=== PATIENT | male | born 1955 | race Caucasian/White ===

== ENCOUNTER → 2017-04-02 | Emergency (ER) | payer OTHER ==
[~2017-04-02] VITALS: Ht 180.3 cm; Wt 123.4 kg
[~2017-04-02] MED LIST: ASPIRIN EC81 MG PO; CARVEDILOL25 MG PO; COUMADIN5 MG PO; DICLOFENAC SODI75 MG PO; GUAIATUSSIN AC10 ML PO; KLOR-CON M2020 MEQ PO; LASIX20 MG PO; LOSARTAN POTASS25 MG PO; NORCO 5-325 TA1 EACH PO; PREDNISONE20 MG PO; SULFAMETHOXAZO1 EAC1 PO; TRIAMTERENE-HC1 EAC1 PO; TRIAMTERENE-HC1 EAC2 PO; WARFARIN SODIU2.5 MG PO; ZYLOPRIM300 MG PO
--- OUTSIDE RECORDS SUMMARY | ~2017-04-02 | XMS ---
Demographics + + + | Address | [address] | | | [address] | | | [place] [address] | + + + | Preferred Language | Unknown | + + + | Marital Status | Unknown | + + + | Yarsanism Affiliation | Unknown | + + + | Race | Unknown | + + + | Ethnic Group | Unknown | + + + Author + + + | Author | [facility] | + + + | Organization | [facility] | + + + | Address | [address] | | | [place] [address] | + + + | Phone | | + + + Care Team Providers + + + + | Care Hardware Trainer Name | Role | Phone | + + + + Unavailable | Unavailable | + + + + PROBLEMS +---------+ + + +--------+ + + | Type | Condition | ICD9-CM | [id number] | Onset | Condition | SNOMED | | | | Code | Code | Dates | Status | Code | +---------+ + + +--------+ + + | Problem | Adrenal | D35.01 | | | Active | [id number] | | | cortical | | | | | | | | adenoma of | | | | | | | | right | | | | | | | | adrenal | | | | | | | | gland | | | | | | +---------+ + + +--------+ + + | 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 | | | Active | 2949186 | | | concentric | | | | | | | | left | | | | | | | | ventricula | | | | | | | | r | | | | | | | | hypertroph | | | | | | | | y | | | | | | +---------+ + + +--------+ + + | Problem | Epidermal | L72.0 | | | Active | [id number] | | | inclusion | | | | | | | | cyst | | | | | | +---------+ + + +--------+ + + | Problem | Elevated | E79.0 | | | Active | 499649616 | | | uric acid | | | | | | | | in blood | | | | | | +---------+ + + +--------+ + + | Problem | Atrial | | I48.91 | | Active | 02667518 | | | fibrillati | | | | | | | | on | | | | | | +---------+ + + +--------+ + + | Problem | Mitral | I34.0 | | | Active | 81617106 | | | regurgitat | | | | | | | | ion | | | | | | +---------+ + + +--------+ + + | Problem | Encounter | | Z13.89 | | Active | 875621962 | | | for | | | | | | | | screening | | | | | | | | for other | | | | | | | | disorder | | | | | | +---------+ + + +--------+ + + | Problem | Morbid | | E66.01 | | Active | 962882897 | | | obesity | | | | | | +---------+ + + +--------+ + + | Problem | Lesion of | E27.9 | | | Active | 96753098 | | | adrenal | | | | | | | | gland | | | | | | +---------+ + + +--------+ + + | Problem | Obesity | | E66.9 | | Active | 696536172 | +---------+ + + +--------+ + + | Problem | ASCVD | I25.10 | | | Active | 50342864 | | | (arteriosc | | | | | | | | lerotic | | | | | | | | cardiovasc | | | | | | | | ular | | | | | | | | disease) | | | | | | +---------+ + + +--------+ + + | Problem | Strep | J02.0 | | | Active | 93633781 | | | pharyngiti | | | | | | | | s | | | | | | +---------+ + + +--------+ + + | Problem | Elevated | R97.20 | | | Active | 170782673 | | | PSA | | | | | | +---------+ + + +--------+ + + | Problem | Essential | | I10 | | Active | 66125670 | | | (primary) | | | | | | | | hypertensi | | | | | | | | on | | | | | | +---------+ + + +--------+ + + | Problem | Allergic | 493.00 | | | Active | 96457716 | | | asthma w/o | | | | | | | | mention | | | | | | | | of status | | | | | | | | asthmaticu | | | | | | | | s or acute | | | | | | | | | | | | | | | | exacerbati | | | | | | | | on | | | | | | +---------+ + + +--------+ + + | Problem | Hypertensi | 401.9 | | | Active | 67635349 | | | on NOS | | | | | | +---------+ + + +--------+ + + | Problem | Pain in | | M25.571 | | Active | 027269080 | | | right | | | | | | | | ankle and | | | | | | | | joints of | | | | | | | | right foot | | | | | | +---------+ + + +--------+ + + | Problem | Pain in | | M25.572 | | Active | 565046253 | | | left ankle | | | | | | | | and | | | | | | | | joints of | | | | | | | | left foot | | | | | | +---------+ + + +--------+ + + | Problem | Gout | | M10.9 | | Active | 06850771 | +---------+ + + +--------+ + + | Problem | Chronic | | Z79.01 | | Active | 146829416 | | | anticoagul | | | | | | | | ation | | | | | | +---------+ + + +--------+ + + | Problem | CHF | | I50.9 | | Active | 75117721 | | | (congestiv | | | | | | | | e heart | | | | | | | | failure) | | | | | | +---------+ + + +--------+ + + | Problem | Hypokalemi | | E87.6 | | Active | 08176808 | | | a | | | | | | +---------+ + + +--------+ + + | Problem | Mitral | | I05.0 | | Active | 81277945 | | | stenosis | | | | | | +---------+ + + +--------+ + + | Problem | Anasarca | N04.9 | | | Active | 71104399 | | | associated | | | | | | | | with | | | | | | | | disorder | | | | | | | | of kidney | | | | | | +---------+ + + +--------+ + + | Problem | Pneumonia | J18.9 | | | Active | 823692892 | +---------+ + + +--------+ + + | Problem | Hypertensi | I12.9 | | | Active | 18052170 | | | ve renal | | | | | | | | disease | | | | | | +---------+ + + +--------+ + + | Problem | CKD | | N18.3 | | Active | 345500912 | | | (chronic | | | | | | | | kidney | | | | | | | | disease) | | | | | | | | stage 3, | | | | | | | | GFR 30-59 | | | | | | | | ml/min | | | | | | +---------+ + + +--------+ + + | Problem | Swollen | M79.89 | | | Active | 247278309 | | | feet | | | | | | +---------+ + + +--------+ + + ALLERGIES Unknown Allergies SOCIAL HISTORY No smoking Hx information available PLAN OF CARE VITAL SIGNS MEDICATIONS + + + + + + + +--------+ | Medicati | Instruct | Dosage | Frequenc | Start | End Date | Duration | Status | | on | ions | | y | Date | | | | + + + + + + + +--------+ | Albutero | Inhalati | 2 puffs | 4h | 22 Jul, | | 90 days | Active | | l | on every | as | | 2015 | | | | | Sulfate | 4 hrs | needed | | | | | | | HFA 108 | | | | | | | | | (90 | | | | | | | | | Base) | | | | | | | | | MCG/ACT | | | | | | | | + + + + + + + +--------+ | Carvedil | Orally | 1 tablet | 12h | | | 90 days | Active | | ol 25 MG | Twice a | with | | | | | | | | day | food | | | | | | + + + + + + + +--------+ | Warfarin | Orally | 1 tablet | | 23 September, | | 90 days | Active | | Sodium | Once a | | | 2016 | | | | | 5 MG | day, T,F | | | | | | | | | 7.5mg | | | | | | | + + + + + + + +--------+ | Furosemi | orally | TAKE ONE | 24h | | | 90 days | Active | | de 20MG | once a | TABLET | | | | | | | | day | BY MOUTH | | | | | | | | | ONCE | | | | | | | | | DAILY | | | | | | + + + + + + + +--------+ | Aspir-81 | Orally | 1 tablet | 24h | | | | Active | | 81 MG | Once a | | | | | | | | | day | | | | | | | + + + + + + + +--------+ | Diclofen | | | | | | | Active | | ac | | | | | | | | + + + + + + + +--------+ | Klor-Con | | TAKE ONE | | | | 30 | Active | | M20 | | TABLET | | | | | | | 20MEQ | | BY MOUTH | | | | | | | | | TWICE | | | | | | | | | DAILY | | | | | | + + + + + + + +--------+ | Triamter | orally | TAKE ONE | 24h | | | 90 days | Active | | negin-HCTZ | once a | TABLET | | | | | | | 75-50MG | day | BY MOUTH | | | | | | | | | IN THE | | | | | | | | | MORNING | | | | | | + + + + + + + +--------+ | Losartan | Orally | 1 tablet | 24h | | | 90 days | Active | | | Once a | | | | | | | | Potassiu | day | | | | | | | | m 25MG | | | | | | | | + + + + + + + +--------+ RESULTS No Results PROCEDURES No Known procedures IMMUNIZATIONS No Known Immunizations"
--- OUTSIDE RECORDS SUMMARY | ~2017-04-02 | XMS ---
Demographics + + + | Address | [address] | | | [address] | | | [place] [address] | + + + | Preferred Language | Unknown | + + + | Marital Status | Unknown | + + + | Evangelical Affiliation | Unknown | + + + | Race | Unknown | + + + | Ethnic Group | Unknown | + + + Author + + + | Author | [facility] | + + + | Organization | [facility] | + + + | Address | [address] | | | [place] [address] | + + + | Phone | | + + + Care Team Providers + + + + | Care Volunteer Manager Name | Role | Phone | + + + + Unavailable | Unavailable | + + + + PROBLEMS +---------+ + + +--------+ + + | Type | Condition | ICD9-CM | [id number] | Onset | Condition | SNOMED | | | | Code | Code | Dates | Status | Code | +---------+ + + +--------+ + + | Problem | Swollen | M79.89 | | | Active | [id number] | | | feet | | | | | | +---------+ + + +--------+ + + | Problem | Hypertensi | I12.9 | | | Active | 51464116 | | | ve renal | | | | | | | | disease | | | | | | +---------+ + + +--------+ + + | Problem | Pneumonia | J18.9 | | | Active | 612597444 | +---------+ + + +--------+ + + | Problem | Strep | J02.0 | | | Active | 24914201 | | | pharyngiti | | | | | | | | s | | | | | | +---------+ + + +--------+ + + | 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 | | | Active | 0849057 | | | concentric | | | [...] | | E66.9 | | Active | 533648578 | +---------+ + + +--------+ + + | Problem | Adrenal | D35.01 | | | Active | 54253897 | | | cortical | | | [...] | | Z13.89 | | Active | 682833256 | | | for | | | | | | | | screening | | | | | | | | for other | | | | | | | | disorder | | | | | | +---------+ + + +--------+ + + | Problem | Atrial | | I48.91 | | Active | 76752404 | | | fibrillati | | | | | | | | on | | | | | | +---------+ + + +--------+ + + | Problem | ASCVD | I25.10 | | | Active | 29121578 | | | (arteriosc | | | [...] | E27.9 | | | Active | 07389833 | | | adrenal | | | | | | | | gland | | | | | | +---------+ + + +--------+ + + | Problem | Hypertensi | 401.9 | | | Active | 52187315 | | | on NOS | | | | | | +---------+ + + +--------+ + + | Problem | Allergic | 493.00 | | | Active | 39454562 | | | asthma w/o | | [...] | L72.0 | | | Active | 311428431 | | | inclusion | | | | | | | | cyst | | | | | | +---------+ + + +--------+ + + | Problem | Mitral | I34.0 | | | Active | 77963349 | | | regurgitat | | | | | | | | ion | | | | | | +---------+ + + +--------+ + + | Problem | Anasarca | N04.9 | | | Active | 95815731 | | | associated | | | | | | | | with | | | | | | | | disorder | | | | | | | | of kidney | | | | | | +---------+ + + +--------+ + + | Problem | CHF | | I50.9 | | Active | 78295520 | | | (congestiv | | | | | | | | e heart | | | | | | | | failure) | | | | | | +---------+ + + +--------+ + + | Problem | Essential | | I10 | | Active | 46787243 | | | (primary) | | | | | | | | hypertensi | | | | | | | | on | | | | | | +---------+ + + +--------+ + + | Problem | Hypokalemi | | E87.6 | | Active | 79882980 | | | a | | | | | | +---------+ + + +--------+ + + | Problem | Mitral | | I05.0 | | Active | 54107255 | | | stenosis | | | | | | +---------+ + + +--------+ + + | Problem | CKD | | N18.3 | | Active | 791014421 | | | (chronic | | | [...] +---------+ + + +--------+ + + ALLERGIES + + + + +--------+ | Substance | Reaction | Event Type | Date | Status | + + + + +--------+ | Lisinipril | cough | Drug Allergy | Oct, | Active | + + + + +--------+ | Pulmicort | dizzy | Drug Allergy | Oct, | Active | + + + + +--------+ SOCIAL HISTORY No smoking Hx information available PLAN OF CARE + +---------+ | Activity | Details | + +---------+ +---+ | | +---+ + + + | Follow Up | as scheduled with PCP Reason:null | + + + VITAL SIGNS + + + + | Height | 70.5 in | 2016-10-11 | + + + + | Weight | 299.1 lbs | 2016-10-11 | + + + + | BMI | 42.31 kg/m2 | 2016-10-11 | + + + + | Temperature | 97.9 degrees Fahrenheit | 2016-10-11 | + + + + | Heart Rate | 67 /min | 2016-10-11 | + + + + | Blood pressure systolic | 137 mm Hg | 2016-10-11 | + + + + | Blood pressure diastolic | 85 mm Hg | 2016-10-11 | + + + + MEDICATIONS + + + + + + + +--------+ | Medicati | Instruct | Dosage | Frequenc | Start | End Date | Duration | Status | | on | ions | | y | Date | | | | + + + + + + + +--------+ | Acetamin | Orally | 10 ml as | | Oct, | 19 Oct, | 10 | Active | | ophen-Co | once a | needed | | 2017 | 2017 | day(s) | | | deine | day at | | | | | | | | 120-12 | bedtime | | | | | | | | MG/5ML | | | | | | | [...] Inhalati | 2 puffs | 4h | Jul, | | 90 days | Active [...] + + + + + +--------+ | Penicill | orally | 1 tablet | 12h | Oct, | Oct, | 10 days | Active | | in V | Twice a | | | 2016 | 2016 | | | | Potassiu | day | | | | | | | | m 500 MG | | | | | | | [...] | Orally | 1 tablet | | 24 September, | | 90 days | Active | | Sodium | Once a | | | 2015 | | | | | 5 MG [...] + + + + + +--------+ RESULTS + +--------+------+ + | Name | Result | Date | Reference Range | + +--------+------+ + | Strep Gp A Rapid | | | | | (IH) | | | | + +--------+------+ + PROCEDURES + + + + + | Procedure | Date Ordered | Related Diagnosis | Body Site | + + + + + | STREP A ASSAY | October 11, 2016 | | | | W/OPTIC | | | | + + + + + | Est Level III | October 11, 2016 | | | | Intermediate | | | | + + + + + IMMUNIZATIONS No Known Immunizations"
--- OUTSIDE RECORDS SUMMARY | ~2017-04-02 | XMS ---
Demographics + + + | Address | [address] | | | [address] | | | [place] [address] | + + + | Preferred Language | Unknown | + + + | Marital Status | Unknown | + + + | Oriental Orthodox Affiliation | Unknown | + + + | Race | Unknown | + + + | Ethnic Group | Unknown | + + + Author + + + | Author | [facility] | + + + | Organization | [facility] | + + + | Address | [address] | | | [place] [address] | + + + | Phone | | + + + Care Team Providers + + + + | Care Enterprise Sales Person Name | Role | Phone | + + + + Unavailable | Unavailable | + + + + PROBLEMS + + + + + + + + | Type | Condition | ICD9-CM | [id number] | Onset | Condition | SNOMED | | | | Code | Code | Dates | Status | Code | + + + + + + + + | Problem | CHF | | I50.9 | | Active | 30225402 | | | (congestiv | | | | | | | | e heart | | | | | | | | failure) | | | | | | + + + + + + + + | Problem | CKD | | N18.3 | | Active | 580595111 | | | (chronic | | | | | | | | kidney | | | | | | | | disease) | | | | | | | | stage 3, | | | | | | | | GFR 30-59 | | | | | | | | ml/min | | | | | | + + + + + + + + | Problem | Hypokalemi | | E87.6 | | Active | 67146722 | | | a | | | | | | + + + + + + + + | Problem | Lesion of | E27.9 | | | Active | 45034114 | | | adrenal | | | | | | | | gland | | | | | | + + + + + + + + | Assessment | Morbid | | E66.01 | Aug, | Active | 967111351 | | | obesity | | | 2016 | | | + + + + + + + + | Problem | Encounter | | Z13.89 | | Active | 912246594 | | | for | | | | | | | | screening | | | | | | | | for other | | | | | | | | disorder | | | | | | + + + + + + + + | Assessment | Seborrheic | L82.1 | | Aug, | Active | 57091092 | | | keratosis | | | 2016 | | | + + + + + + + + | Problem | Pneumonia | J18.9 | | | Active | 362243789 | + + + + + + + + | Problem | Swollen | M79.89 | | | Active | 185604561 | | | feet | | | | | | + + + + + + + + | Problem | Atrial | | I48.91 | | Active | 71782071 | | | fibrillati | | | | | | | | on | | | | | | + + + + + + + + | Problem | Hypertensi | I12.9 | | | Active | 00734910 | | | ve renal | | | | | | | | disease | | | | | | + + + + + + + + | 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 | | | Active | 9973542 | | | concentric | | | | | | | | left | | | | | | | | ventricula | | | | | | | | r | | | | | | | | hypertroph | | | | | | | | y | | | | | | + + + + + + + + | Problem | Epidermal | L72.0 | | | Active | 648302451 | | | inclusion | | | | | | | | cyst | | | | | | + + + + + + + + | Assessment | Hypertensi | I12.9 | | 17 Apr, | Active | 08219733 | | | ve renal | | | 2016 | | | | | disease | | | | | | + + + + + + + + | Problem | Adrenal | D35.01 | | | Active | 02741388 | | | cortical | | | | | | | | adenoma of | | | | | | | | right | | | | | | | | adrenal | | | | | | | | gland | | | | | | + + + + + + + + | Problem | Allergic | 493.00 | | | Active | 14204674 | | | asthma w/o | | [...] on | | | | | | + + + + + + + + | Problem | Essential | | I10 | | Active | 93087282 | | | (primary) | | | | | | | | hypertensi | | | | | | | | on | | | | | | + + + + + + + + | Problem | Mitral | I34.0 | | | Active | 69941125 | | | regurgitat | | | | | | | | ion | | | | | | + + + + + + + + | Problem | Mitral | | I05.0 | | Active | 33533933 | | | stenosis | | | | | | + + + + + + + + | Problem | Hypertensi | 401.9 | | | Active | 05910735 | | | on NOS | | | | | | + + + + + + + + | Problem | Anasarca | N04.9 | | | Active | 51354998 | | | associated | | | | | | | | with | | | | | | | | disorder | | | | | | | | of kidney | | | | | | + + + + + + + + ALLERGIES + + + + +--------+ | Substance | Reaction | Event Type | Date | Status | + + + + +--------+ | Lisinipril | cough | Drug Allergy | 17 Aug, 2017 | Active | + + + + +--------+ | Pulmicort | dizzy | Drug Allergy | Aug, | Active | + + + + +--------+ SOCIAL HISTORY No smoking Hx information available PLAN OF CARE VITAL SIGNS + + + + | Height | 70.5 in | 2016-08-19 | + + + + | Weight | 293 lbs | 2016-08-19 | + + + + | BMI | 41.44 kg/m2 | 2016-08-19 | + + + + | Temperature | 97.3 degrees Fahrenheit | 2016-08-19 | + + + + | Heart Rate | 68 /min | 2016-08-19 | + + + + | Blood pressure systolic | 127 mm Hg | 2016-08-19 | + + + + | Blood pressure diastolic | 74 mm Hg | 2016-08-19 | + + + + MEDICATIONS + [...] | on every | as | | 2016 | | | | | Sulfate | [...] + + + + + +--------+ | KCL 20 | Orally | 1 tablet | 12h | | 11 Antonio, | 90 days | Active | | mEq | Twice a | | | | 2018 | | | | | day | | | | | | | + + + + + + + +--------+ | Warfarin | Orally | 1 tablet | | 23 May, | | 90 days | Active | [...] + + + + +--------+ RESULTS + +--------+ + + | Name | Result | Date | Reference Range | + +--------+ + + | TSH | | 2016-08-19 | | + +--------+ + + | TSH | | | | + +--------+ + + | Lipid Panel | | 2016-08-19 | | + +--------+ + + | Cholesterol, Total | | | | + +--------+ + + | Triglycerides | | | | + +--------+ + + | HDL Cholesterol | | | | + +--------+ + + | VLDL Cholesterol | | | | | [place] | | | | + +--------+ + + | LDL Cholesterol | | | | | Calc | | | | + +--------+ + + | PSA Total (Reflex | | 2016-08-19 | | | To Free) | | | | + +--------+ + + | Prostate-Specific | | | | | Ag, Serum | | | | + +--------+ + + | . | | | | + +--------+ + + PROCEDURES + + + + + | Procedure | Date Ordered | Related Diagnosis | Body Site | + + + + + | Est Level IV | August 19, 2016 | | | | Extended | | | | + + + + + | [facility] MED/CURRENT | August 19, 2016 | | | | MED MERGE | | | | + + + + + IMMUNIZATIONS No Known Immunizations"
--- OUTSIDE RECORDS SUMMARY | ~2017-04-02 | XMS ---
Demographics + + + | Address | [address] | | | [address] | | | [place] [address] | + + + | Preferred Language | Unknown | + + + | Marital Status | Unknown | + + + | Confucianist Affiliation | Unknown | + + + | Race | Unknown | + + + | Ethnic Group | Unknown | + + + Author + + + | Author | [facility] | + + + | Organization | [facility] | + + + | Address | [address] | | | [place] [address] | + + + | Phone | | + + + Care Team Providers + + + + | Care Operations Welder Name | Role | Phone | + + + + Unavailable | Unavailable | + + + + PROBLEMS +---------+ + + +--------+ + + | Type | Condition | ICD9-CM | [id number] | Onset | Condition | SNOMED | | | | Code | Code | Dates | Status | Code | +---------+ + + +--------+ + + | Problem | CKD | | N18.3 | | Active | [id number] | | | (chronic | | | [...] | J18.9 | | | Active | 185135833 | +---------+ + + +--------+ + + | Problem | Swollen | M79.89 | | | Active | 035729905 | | | feet | | | | | | +---------+ + + +--------+ + + | Problem | Obesity | | E66.9 | | Active | 923110867 | +---------+ + + +--------+ + + | Problem | Adrenal | D35.01 | | | Active | 26944280 | | | cortical | | | [...] | I25.10 | | | Active | 57850521 | | | (arteriosc | | | | | | | | lerotic | | | | | | | | cardiovasc | | | | | | | | ular | | | | | | | | disease) | | | | | | +---------+ + + +--------+ + + | Problem | Atrial | | I48.91 | | Active | 88027643 | | | fibrillati | | | | | | | | on | | | | | | +---------+ + + +--------+ + + | Problem | Hypertensi | I12.9 | | | Active | 44432237 | | | ve renal | | | | | | | | disease | | | | | | +---------+ + + +--------+ + + | Problem | Lesion of | E27.9 | | | Active | 98156346 | | | adrenal | | | | | | | | gland | | | | | | +---------+ + + +--------+ + + | Problem | Encounter | | Z13.89 | | Active | 788327170 | | | for | | | | | | | | screening | | | | | | | | for other | | | | | | | | disorder | | | | | | +---------+ + + +--------+ + + | Problem | Mitral | I34.0 | | | Active | 97035380 | | | regurgitat | | | | | | | | ion | | | | | | +---------+ + + +--------+ + + | Problem | Hypertensi | 401.9 | | | Active | 13458161 | | | on NOS | | | | | | +---------+ + + +--------+ + + | 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 | | | Active | 1225986 | | | concentric | | | [...] | L72.0 | | | Active | 742070108 | | | inclusion | | | | | | | | cyst | | | | | | +---------+ + + +--------+ + + | Problem | Mitral | | I05.0 | | Active | 67021099 | | | stenosis | | | | | | +---------+ + + +--------+ + + | Problem | Anasarca | N04.9 | | | Active | 06944172 | | | associated | | | | | | | | with | | | | | | | | disorder | | | | | | | | of kidney | | | | | | +---------+ + + +--------+ + + | Problem | Allergic | 493.00 | | | Active | 77566234 | | | asthma w/o | | [...] | | I50.9 | | Active | 21222186 | | | (congestiv | | | | | | | | e heart | | | | | | | | failure) | | | | | | +---------+ + + +--------+ + + | Problem | Essential | | I10 | | Active | 04964328 | | | (primary) | | | | | | | | hypertensi | | | | | | | | on | | | | | | +---------+ + + +--------+ + + | Problem | Hypokalemi | | E87.6 | | Active | 38124907 | | | a | | | | | | +---------+ + + +--------+ + + ALLERGIES + + + + +--------+ | Substance | Reaction | Event Type | Date | Status | + + + + +--------+ | Lisinipril | cough | Drug Allergy | September, | Active | + + + + +--------+ | Pulmicort | dizzy | Drug Allergy | September, | Active | + + + + +--------+ SOCIAL HISTORY No smoking Hx information available PLAN OF CARE + +---------+ | Activity | Details | + +---------+ +---+ | | +---+ + + + | Follow Up | 3 Months Reason:null | + + + VITAL SIGNS + + + + | Height | 70.5 in | 2016-10-01 | + + + + | Weight | 300 lbs | 2016-10-01 | + + + + | BMI | 42.43 kg/m2 | 2016-10-01 | + + + + | Temperature | 97.6 degrees Fahrenheit | 2016-10-01 | + + + + | Heart Rate | 60 /min | 2016-10-01 | + + + + | Blood pressure systolic | 114 mm Hg | 2016-10-01 | + + + + | Blood pressure diastolic | 59 mm Hg | 2016-10-01 | + + + + MEDICATIONS + [...] + + +--------+ RESULTS No Results PROCEDURES + + + + + | Procedure | Date Ordered | Related Diagnosis | Body Site | + + + + + | Est Level III | October 01, 2016 | | | | Intermediate | | | | + + + + + | [facility] MED/CURRENT | October 01, 2016 | | | | MED MERGE | | | | + + + + + IMMUNIZATIONS No Known Immunizations"
== END ==
LOC: ED 20:35
DX: R04.0 Epistaxis (principal); I10 Essential (primary) hypertension; Z90.49 Acquired absence of other specified parts of digestive tract; Z79.899 Other long term (current) drug therapy; Z79.01 Long term (current) use of anticoagulants; Z79.82 Long term (current) use of aspirin
CPT/HCPCS: 85025; 85610; 99283

== ENCOUNTER 2018-07-27 12:07 | Day surgery (SDC) | payer OTHER ==
[~2018-07-27 12:07] MED LIST changes: +CELEBREX200 MG PO; -LASIX20 MG PO; +LASIX40 MG PO
--- NOTE | 2018-07-27 13:52 | NUR ---
07/27/18 1352 [address] 1330 PT TO PACU, ALERT AND ORIENTED. LR INFUSING TO RIGHT HAND. PT ON LEFT SIDE, ENCOURAGED TO PASS GAS. ABD SOFT, DENIES PAIN OR NAUSEA.
--- NOTE | 2018-07-27 20:11 | OR ---
[facility] [address], [place] [address] Signed DATE OF OPERATION: 07/27/2018 SURGEON: Emerson Plunkett MD PREOPERATIVE DIAGNOSES: 1. Episodic dark stool and constipation. 2. Chronic anticoagulation with Coumadin for atrial fibrillation. POSTOPERATIVE DIAGNOSES: 1. Extensive sigmoid and left-sided diverticulosis. 2. Small polyp of rectum (excised). 3. Internal hemorrhoids and hypertrophied anal papillae. PROCEDURE: Total colonoscopy to cecum with cold morcellation polypectomy x1. ANESTHESIA: Intravenous sedation; fentanyl 100 mcg, Versed 5 mg. INDICATION: This morbidly obese 63-year-old white man, who is a patient Dr. Hadley and is on Coumadin for chronic anticoagulation for atrial fibrillation. He has been off Coumadin for 4 days. He has had complaints of dark stool as well as constipation. He last underwent colonoscopy at the [facility] well before 2008, which was said to be normal. He was admitted at this time to undergo colonoscopy to better characterize his problem, understand the risks of bleeding, infection, and perforation. FINDINGS: The prep was reasonably good. Complete colonoscopy was undertaken to the cecum without question. There were numerous diverticula of the sigmoid and left colon. There was a small sessile polyp of the rectum, which was excised. Retroflexed view confirmed hypertrophied anal papillae and some internal hemorrhoidal change. DESCRIPTION OF PROCEDURE: The patient was brought to the endoscopy suite and placed in lateral decubitus position given intravenous sedation to the point of slurred speech and nystagmus with full cardiopulmonary monitoring. Digital rectal examination was normal. An Olympus video colonoscope was passed in the rectum and manipulated throughout the colon, ultimately intubating the cecum itself. Visualization was reasonably good. Electronically Signed By: EMERSON PLUNKETT MD 07/27/182010 PATIENT NAME: AYAD ANDERSON OPERATIVE REPORT DATE OF : 55 REPORT #: [id number] PHYSICIAN: EMERSON PLUNKETT MD PCP: ARMIN HADLEY MD REPORT IS CONFIDENTIAL AND NOT TO BE RELEASED WITHOUT AUTHORIZATION [facility] [address], [place] [address] Signed Irrigation was undertaken as necessary. The scope was carefully withdrawn and examination undertaken showed no sign of abnormality other than numerous diverticula of the sigmoid and left colon as had been seen previously. Within the rectum at about 10 cm was a small sessile polyp. Narrow band imaging was used to confirm this to be likely an adenoma. This was excised with cold morcellation technique. Retroflexed view was undertaken showing some internal hemorrhoidal change and hypertrophied anal papillae. The scope was straightened, withdrawn, and removed. The patient was taken to recovery room in good condition. CONCLUDING DIAGNOSIS: 1. Extensive diverticulosis. 2. Minimal internal hemorrhoidal change with hypertrophied anal papillae and small rectal polyp (excised). PLAN: He is okay to re-start his Coumadin. There will be a few days to "ramp up" to a therapeutic level. I would recommend repeat colonoscopy in 5 years sooner if clinically indicated. He should maintain a high-fiber diet. He will return to the ongoing care of Dr. Hadley. Emerson Plunkett MD JM/MODL /[id number] cc: Armin Hadley MD Copies: ARMIN HADLEY MD ~ Electronically Signed By: EMERSON PLUNKETT MD 07/27/182010 PATIENT NAME: AYAD ANDERSON OPERATIVE REPORT DATE OF : 55 REPORT #: [id number] PHYSICIAN: EMERSON PLUNKETT MD PCP: ARMIN HADLEY MD REPORT IS CONFIDENTIAL AND NOT TO BE RELEASED WITHOUT AUTHORIZATION
== END 2018-07-27 14:18 | disposition home or self-care (01) ==
LOC: DS 12:07 → OPS 12:07 → DS 13:00 → OPS 13:00
PROVIDERS: Surgery
PROC: 0DBP8ZX Excision of Rectum, Via Natural or Artificial Opening Endoscopic, Diagnostic (ICD-10-PCS; principal; 2018-07-27 13:00)
DX: D12.8 Benign neoplasm of rectum (principal); K64.8 Other hemorrhoids; K57.30 Diverticulosis of large intestine without perforation or abscess without bleeding; K62.89 Other specified diseases of anus and rectum; I48.2 Chronic atrial fibrillation; I10 Essential (primary) hypertension; E66.01 Morbid (severe) obesity due to excess calories; Z88.8 Allergy status to other drugs, medicaments and biological substances; Z79.899 Other long term (current) drug therapy; Z79.01 Long term (current) use of anticoagulants
CPT/HCPCS: 99153; G0500; J2250; J3010; J7120

== ENCOUNTER 2021-09-20 22:27 | Observation (INO) | payer MEDICARE, OTHER ==
[~2021-09-20] VITALS: Ht 180.3 cm; Wt 130.8 kg
[~2021-09-20 22:27] MED LIST changes: +ALLOPURINOL300 MG PO; +ATORVASTATIN CA20 MG PO; +SILDENAFIL20 MG PO; +SPIRONOLACTONE25 MG PO; +TORSEMIDE20 MG PO; +TRIAMTERENE50 MG PO; -ZYLOPRIM300 MG PO
[2021-09-20] MEDS ORDERED: COREG25 MG PO (22:39)
[2021-09-20] MEDS ORDERED: SILDENAFIL20 MG PO (23:29)
--- NOTE | 2021-09-21 01:47 | NUR ---
PT ARRIVED TO THE CCU AT 2335 AWAKE AND ALERT VIA STRETCHER. PT ABLE TO STAND UP AND PIVOT TO THE CCU BED. PT BELONGINGS PRESENT. PT VITALS TAKEN AND PT VOIDED 225MLS SHORTLY AFTER ARRIVING. ORDERED IVF THEN STARTED AND NOW INFUSING ORDERED (SEE MAR). PT PROVIDED WITH AN ENSUREPER HIS REQUEST. ASSESSMENT THEN COMPLETED. PT ALERT AND ORIENTED X4 AND DENIES HAVING ANY LIGHTHEADEDNESS OR DIZZYNESS WHEN SITTING/LAYIN DOWN. LUNGS CLEAR IN UPPER LOBES AND CLEAR/DIMINISHED IN THE BASES, PT DENIES SHORTNESS OF BREATH. HEART RYTHM BRADYCARDIC IN THE 40'S PT DENIES ANY CHEST PAIN. RYTHM REGULAR. ABDOMEN SOFT, ROUND, ACTIVE BOWEL TONES PRESENT. STRONG PULSES PRESENT. +2 EDEMA PRESENT IN LEGS BILATERALLY. WHILE DOING ADMISSION PT'S BP WAS ASSESSED MANUALLY AND WAS 90/54 MMHG. PT DENIES ANY LIGHTHEADEDNESS OR DIZZYNESS AT THIS TIME. PT PROVIDED WITH MORE ENSURE AND A SANDWICH BOX PER HIS REQUEST. PT NOW EATING AT THIS TIME AND REPORTS NO NEEDS, CALL LIGHT IN REACH, BED IN LOWEST POSITION, IVF INFUSING, WILL CONTINUE PLAN OF CARE.
--- NOTE | 2021-09-21 02:47 | NUR ---
PT SITTING UP IN BED WATCHING TV AT THIS TIME IVF INFUSING ORDERED. PT PROVIDED WITH ICE WATER AT THIS TIME. HR STILL BRADYCARDIC IN THE 40'S, PT DENIES LIGHTHEADEDNESS OR DIZZYNESS AT REST. PT REPORTS NO NEEDS AT THIS TIME WHEN ASKED, WILL CONTINUE PLAN OF CARE. CALL LIGHT IN REACH.
--- NOTE | 2021-09-21 03:50 | NUR ---
PT ALERT AND ORIENTED LAYING IN BED. PT NOTED TO HAVE BEEN DESATURATING ON MONITOR TO 86-88% PRIOR TO ENTERING ROOM. PT STATED HE HAD BEEN FALLING ASLEEP AND DENIED SOB, SPO2 NOW 88-90%. PT PLACED ON 2L O2 NC AT THIS TIME TO MAINTAIN SPO2 ABOVE 90%. SPO2 NOW 95-100%. VITALS TAKEN AT THIS TIME AND ASSESSMENT COMPLETED (SEE CHART). PT DENIES LIGHTHEADEDNESS OR DIZZYNESS AT THIS TIME. LUNGS CLEAR IN UPPER LOBES AND CLEAR/DIMINISHED IN THE BASES. PT PULSES STRONG, BRISK CAPILLARY REFILL PREENT. PT REPORTS NO FURTHER NEEDS AT THIS TIME AND STATES HE IS GOING TO SLEEP, WILL CONTINUE PLAN OF CARE. CALL LIGHT IN REACH, BED IN LOWEST POSITION.
--- NOTE | 2021-09-21 04:10 | NUR ---
PT USING BEDSIDE COMMODE AT THIS TIME AND HAD BEEN ASSISTED THERE BY MORGAN VALENTINE. PT HAD AN EPISODE OF INCONTINENCE PRIOR AND HAD BEEN CLEANED UP BY MORGAN VALENTINE. PT FINISHED BM AND HAD AN UNMEASURED VOID. BM LIQUID AND CLEAR/SORTO WITH A SLIGHT RED TINGE. PT DENIES FEELIN LIGHTHEADED AT THIS TIME AND REPORTS FEELING BETTER. PT ABLE TO GET UP AND GET INTO THE BED. IVF STILL INFUSING ORDERED. PT VITALS TAKEN AT THIS TIME AND ASSESSMENT COMPLETED (SEE CHART). PT DENIES SHORTNESS OF BREATH, COARSE LUNG SOUNDS NOTED AT THIS TIME. PT TEMP WAS 99.3. PRN TYLENOL ADMINISTERED AFTER ASSESSMENT AND VITALS (SEE MAR). PT REPORTS NO FURTHER NEEDS AT THIS TIME AND WAS PROVIDED WITH ICE WATER. CALL LIGHT IN REACH, BED IN LOWEST POSITION, PT NOW LAYING IN BED RESTING.
--- NOTE | 2021-09-21 06:15 | NUR ---
PT LAYING IN BED SLEEPING, IVF INFUSING. PT AWOKE AND USED THE URINAL AND VOIDED 225ML OF CONCENTRATED URINE. PT REPORTS NO NEEDS AFTERWARDS AND REMAINS RESTING IN THE BED AWAKE. PT DENIES LIGHTHEADEDNESS OR DIZZYNES AND IS ON 2L O2 NC, SPO 98%. WILL CONTINUE PLAN OF CARE. CALL LIGHT IN REACH, BED IN LOWEST POSITION.
--- NOTE | 2021-09-21 07:45 | NUR ---
DONNA SHIFT REPORT RECIEVED FROM FINANCIAL SECRETARY RN. PATIENT IS RESTING IN BED AT THIS TIME. PER REPROT PATIENT IS FEELING BETTER THIS TIME. PATIENT HR HAS CONTINUED TO BE IN THE 40'S. PATIENTS BLOOD PRESSURE IS IN THE LOW 100'S. PATIENT HAS NOT TRIED TO GET UP AND STAND YET. PATIENT BECAME DIZZY WITH STANDING PRIOR. PATIENT CALLS APPROPRIATELY. WILL CONTINUE TO CLOSELY MONITOR.
--- NOTE | 2021-09-21 08:30 | NUR ---
THIS RN AND STUDENT RN IN TO DO PATIENT ASSESSMENT. PATIENTS HR IS IN THE 40'S AND BLOOD PRESSURES IN THE LOW 100'S. PATIENT DENIES DIZZINESS WHILE AT REST. PATIENT HAS NOT TRIED TO STAND THIS MORNING. PATIENT BREATH SOUNDS CLEAR. PATIENT REQUIRING OXYGEN WITH SLEEP. PATIENT STATES HIS MD WANTS HIM TO HAVE A SLEEP STUDY. PATIENT STATES "I DONT WANT ONE, I DONT WANT A MACHINE, ITS NOT PART OF MY LIFESTYLE". PATIENT HAS 2+ EDEMA IN BILATERAL LOWER EXTREMITIES, PATIENT STATES THIS IS BASELINE. WILL CONTINUE TO CLOSELY MONITOR.
--- NOTE | 2021-09-21 09:19 | NUR ---
PATIENT RESTING IN BED, VITALS AND I&OS CHARTED. CALL LIGHT IN EASY REACH
--- NOTE | 2021-09-21 10:27 | NUR ---
FORBES IN TO SEE PATIENT. EKG ORDERED. WILL CONTINEU TO CLSOELY MONITOR.
--- NOTE | 2021-09-21 10:30 | NUR ---
LAB HERE TO DRAW LABS. PATIENT RESTING IN BED. WILL CONTINUE TO CLOSELY MONITOR. PATIENT DENIES ANY NEEDS AT THIS TIME.
--- NOTE | 2021-09-21 10:30 | NUR ---
PATIENTS DAUGHTER WAS IN TO SEE HER. PATIENT IS UP SITTING IN THE CHAIR AT THIS TIME. PER GISELLE DAUGHTER PATIENT IS STILL MORE CONFUSED THAN HER NORMAL. WILL CONTINUE TO CLOSELY MONITOR. CHAIR ALARM IN PLACE. WILL CONTINUE TO CLOSELY MONITOR.
--- NOTE | 2021-09-21 11:00 | NUR ---
IN TO SPEAK WITH PATIENT. HE STATES HE WISHES TO DISCHARGE HOME TO HIS APPARTMENT WHEN STABLE. HE DENIES USE OF DME PRIOR TO HIS VISIT. PATIENT STATES THAT HE HAD A CABG THIS YEAR IN [facility] AND WAS DISCHARGE TO A [facility] FOR REHAB AT THAT TIME. PATIENT STATES HE HAS BEEN HOME SINCE 08/10/21. DENIES FINANCIAL NEEDS, HE DRIVES FOR MEDICAL TRANSPORT. GRANT FRANZ IS HIS COUSIN AND CONTACT IF NEEDED. NO FURTHER NEEDS NOTED FROM THE PATIENT AT THIS TIME. ADVISED PATIENT TO CONTACT CASE MANAGEMENT WITH ANY CONCERNS.
--- NOTE | 2021-09-21 11:08 | NUR ---
PATIENT MEDICAL RECORDS REQUESTED FROM [facility] AT THIS TIME.
--- NOTE | 2021-09-21 11:45 | NUR ---
PATIENTS ASSESSMENT REMAINS UNCHANGED AT THIS TIME. PATIENT IS RESTING IN BED. PATIENT HAS THE URINAL AT THE BEDSIDE. ENCOURAGED PATIENT TO TRY AND URINATE SINCE NO VOIDED DOCUMENTED SINCE THIS SHIFT. PATIENT DENEIS ANY OTHER NEEDS AT THIS TIME. WILL CONTINUE TO CLOSELY MONITOR.
--- NOTE | 2021-09-21 13:00 | NUR ---
PATIENT RESTING IN BED. PATIENT USED URINAL ON HIS OWN WITH NO ISSUES. WILL CONTINUE TO CLOSELY MONITOR. PATIENT IS VERY CHATTY WHEN STAFF ENTER ROOM. PATIENT DENIES ANY NEEDS AT THIS TIME.
--- NOTE | 2021-09-21 14:59 | NUR ---
PATIENT CALLED AND WOULD LIKE TO GET UP AND TRY TO WALK. PATIENT AGREEABLE TO GETTING UP IN A LITTLE BIT WITH STAFF MEMBER. PATIENT DENIES ANY OTHER NEEDS. WILL CONTINUE TO CLOSELY MONITOR.
--- NOTE | 2021-09-21 15:45 | NUR ---
PATIENT UP TO THE BEDSIDE TO STRETCH. PATIENT DENIES ANY DIZZINESS WITH MOVING AND STANDING. THIS RN AND FIELD INSTALLER AT THE BEDSIDE. PATIENT TOLERATED WELL. PATIENTS HR REACHED 60 WITH STANDING. BP WAS IN THE 130'S SYSTOLIC. PATIENT BACK ON THE BED. PATIENT DENIED WANTING TO SIT UP IN THE CHAIR. WILL CONTINUE TO CLOSELY MONITOR.
--- NOTE | 2021-09-21 17:30 | NUR ---
PATIENT USED URINAL ON HIS OWN. MEDICATIONS GIVEN. PATIENT NOW WORKING ON HIS DINNER. FRESH WATER AT THE BEDSIDE. PATIENT DENIES ANY OTHER NEEDS AT THIS TIME. WILL CONTINUE TO CLOSELY MONITOR.
--- NOTE | 2021-09-21 19:58 | NUR ---
REPORT RECEIVED FROM TAMARA RN, WILL CONTINUE PLAN OF CARE.
--- NOTE | 2021-09-21 20:51 | NUR ---
PT LAYING IN BED AWAKE AND ALERT ON ROOM AIR. PT REPORTS NO PAIN AND DENIES ANY NEEDS AT THIS TIME. PT VITALS TAKEN AND ASSESSMENT COMPLETED (SEE CHART). PT ALERT AND ORIENTED X4, HEART RATE BRADYCARDIC, LUNGS CLEAR IN UPPER LOBES AND CLEAR/DIMINISHED IN THE BASES, PT DENIES SHORTNESS OF BREATH. ABDOMEN SOFT, ACTIVE BOWEL TONES PRESENT. PULSES STRONG, PT REPORTS BASELINE N&T TO FINGERTIPS. PT REPORTS NO FURTHER NEEDS AFTER ASSESSMENT AND REMAINS RESTING IN BED. CALL LIGHT IN REACH, BED IN LOWEST POSITION, WILL CONTINUE PLAN OF CARE.
--- NOTE | 2021-09-21 21:25 | NUR ---
PT NOTED TO DESATURATE ON THE MONITOR TO 86-88%. PT LAYING IN BED AND STATED HE WAS FALLING ASLEEP WHEN THE ALARM WOKE HIM UP. PT SPO2 INCREASED BACK TO 94-96% WHILE AWAKE. PT DENIES SHORTNESS OF BREATH WHEN ASKED. PT PLACED ON 2L O2 NC TO MAINTAINING SPO2 ABOVE 90% WHILE SLEEPING. PT REPORTS NO FURTHER NEEDS AT THIS TIME WHEN ASKED, CALL LIGHT IN REACH, WILL CONTINUE PLAN OF CARE.
--- NOTE | 2021-09-21 22:00 | NUR ---
PT USED CALL LIGHT. PT INFORMED THIS RN HE HAD VOIDED INTO THE URINAL. URINAL EMPTIED OF 250ML OF URINE. HEART LEADS REPLACED AT THIS TIME WELL. PT REPORTS NO FURTHER NEEDS AND REMAINS ON 2L O2 NC, SPO2 98%. CALL LIGHT IN REACH, WILL CONTINUE PLAN OF CARE.
--- NOTE | 2021-09-21 22:55 | NUR ---
PT LAYING IN BED SLEEPING AT THIS TIME. PT ON 2L O2 NC, SPO2 96-98%. PT IN NO APPARENT DISTRESS, RESPIRATIONS UNLABORED, PT LEFT UNDISTURBED, WILL CONTINUE PLAN OF CARE.
--- NOTE | 2021-09-22 00:20 | NUR ---
PT USED CALL LIGHT. PT LAYING IN BED AWAKE AND ALERT ON 2L O2 NC. PT INFORMED THIS RN HE HAD USED THE URINAL. URINAL EMPTIED OF 175ML. VITALS THEN TAKEN AND ASSESSMENT COMPLETED (SEE CHART). PT PROVIDED [facility] ICE WATER AFTERWARDS AND REPORTS WANTING TO SIT AT THE SIDE OF THE BED. PT ASSISTED IN REPOSITIONING HIMSELF AND IS NOW SITTING UP AT THE SIDE OF THE BED. HR REMAINS AT 47, PT DENIES DIZZYNESS OR LIGHTHEADEDNESS. PT STATES HE WOULD LIKE TO REMAIN THERE FOR THE TIME BEING. CALL LIGHT IN REACH, WILL CONTINUE PLAN OF CARE.
--- NOTE | 2021-09-22 01:20 | NUR ---
PT WAS STILL SITTING AT THE SIDE OF THE BED AWAKE AND ALERT ON 2L O2 NC. PT STATES HE'S NOW FEELING SLEEPY AND REPOSITIONED HIMSLEF BACK IN BED AND IS NOW LAYING DOWN. PT REPORTS NO NEEDS AT THIS TIME WHEN ASKED AND STATES HE IS GOING TO SLEEP. CALL LIGHT IN REACH, WILL CONTINUE PLAN OF CARE.
--- NOTE | 2021-09-22 03:10 | NUR ---
PT USED CALL LIGHT. PT AWAKE AND ALERT IN BED ON 2L O2 NC, SPO2 98%. PT STATED HE NEEDED ASSISTANCE REPOSITIONING HIMSELF UP IN THE BED. RN MEME IN TO ASSIST, PT MOVED UP IN THE BED. PT VITALS AND ASSESSMENT COMPLETED AFTERWARDS (SEE CHART). PT REPORTS NO FURTHER NEEDS AFTERWARDS AND REMAINS RESTING IN BED WATCHING TV. CALL LIGHT IN REACH, WILL CONTINUE PLAN OF CARE.
--- NOTE | 2021-09-22 06:09 | NUR ---
PT ALERT AND ORIENTED LAYING IN BED ON 2L O2 NC, PT REPORTS WANTING A SNACK, ENSURE PROVIDED TO PT AT THIS TIME. PT REPORTS NO FURTHER NEEDS AT THIS TIME AND REMAINS RESTING IN BED, CALL LIGHT IN REACH, WILL CONTINUE PLAN OF CARE.
--- NOTE | 2021-09-22 06:56 | NUR ---
PT LAYING IN BED AWAKE AND ALERT ON THE PHONE. PT LEVOPHED TITRATED DOWN TO 4MCG/MIN AFTER PT'S VITALS WERE TAKEN. PT REPORTS NO NEEDS AT THIS TIME WHEN ASKED, CALL LIGHT IN REACH, WILL CONTINUE PLAN OF CARE.
--- NOTE | 2021-09-22 07:30 | NUR ---
REPORT RECIEVED. PATIENT IS RESTING IN BED.
--- NOTE | 2021-09-22 08:00 | NUR ---
ASSESSMENT DONE. TALKING ABOUT ALL OF HIS HEALTH PROBLEMS OVER THE LAST YEAR. O2 SAT 99 ON 2 L O2 TO OFF. WILL CONTINUE TO MONITOR O2 SAT. DENEIS PAIN OR SHORTNESS BREATH.
--- NOTE | 2021-09-22 09:26 | NUR ---
TOOK BREAKFAST WELL. SITTING UP IN BED, WATCHING TV. DENEIS PAIN OR SHORTNESS OF BREATH.
--- NOTE | 2021-09-22 09:50 | NUR ---
dr. wright here to see patient. PLAN TO AMBULATED PATIENT ON MONITOR IN [place].
--- NOTE | 2021-09-22 10:10 | NUR ---
TO BR TO VOID AND EXPELL STOOL AND VOID QS AMOUNT OF URINE. SEE VITAL SIGNS FOR ORTHROS. PATIENT DENIES DIZZINESS WITH AMBULATION TO BR. IS MILDLY DYSPNIC. AT REST HR 48 WITH EXERTION HR TO 60.
--- NOTE | 2021-09-22 10:30 | NUR ---
PATIENT AMBULATED IN CCU HALLWAY X 2 DID REST APPROX 5 MIN INBETWEEM WALKING. HR TO HIGH 70. DENEIS DIZZINESS, DOES GET SOMEWAHT DYSPNIC. PATIENT STATES THAT HAS BEEN WHAT HE HAS BEEN DOING AT HOME. O2 SATS 89-[address] FORBES AWARE.
--- NOTE | 2021-09-22 11:00 | NUR ---
DISCHARGE ORDERS RECIEVED.
[2021-09-22] MEDS ORDERED: WARFARIN SODIUM5 MG PO (11:11)
--- NOTE | 2021-09-22 11:40 | NUR ---
HOLTER MONITOR APPLIED AN OUTPATIENT. PATIENT TO WEAR THIS FOR 72 HRS. [employer] MONITOR NERI'Jayda.
--- NOTE | 2021-09-22 12:20 | NUR ---
DISCHARED INSTRUCTIONS GIVEN WITH PATIENT UNDERSTANDING. SATS ON RA 87-94. PATIENT STATES THIS IN NORMAL FOR HIM. IS GOING TO EAT LUNCH THEN WILL BE DISCHARGED.
--- NOTE | 2021-09-22 12:45 | NUR ---
DISCHARGED VIA W/C TO HOME.
--- NOTE | 2021-09-23 08:56 | EKG ---
[facility] [address] [facility] [place] [address] Signed Atrial fibrillation with slow ventricular response Rightward axis Incomplete right bundle branch block Septal infarct , age undetermined T wave abnormality, consider inferior ischemia Abnormal ECG When compared with ECG of 19-MAY-2017 13:30, Incomplete right bundle branch block is now present Septal infarct is now present Confirmed by STACEY FORBES MD ([id number]) on 09/23/2021 8:56:09 AM Electronically Signed By: STACEY FORBES MD 09/23/21 0856 PATIENT NAME: AYAD ANDERSON Electrocardiogram DATE OF : 55 PHYSICIAN: STACEY FORBES MD REPORT #: [id number] REPORT IS CONFIDENTIAL AND NOT TO BE RELEASED WITHOUT AUTHORIZATION
--- NOTE | 2021-09-23 08:57 | EKG ---
[facility] [address] [facility] [place] [address] Signed Atrial fibrillation with slow ventricular response Rightward axis Nonspecific T wave abnormality Abnormal ECG When compared with ECG of 20-SEP-2021 22:30, (Unconfirmed) Incomplete right bundle branch block is no longer present Criteria for Septal infarct are no longer present Confirmed by STACEY FORBES MD ([id number]) on 09/23/2021 8:57:14 AM Electronically Signed By: STACEY FORBES MD 09/23/21 0857 PATIENT NAME: AYAD ANDERSON Electrocardiogram DATE OF : 55 PHYSICIAN: STACEY FORBES MD REPORT #: [id number] REPORT IS CONFIDENTIAL AND NOT TO BE RELEASED WITHOUT AUTHORIZATION
== END 2021-09-22 11:30 | disposition home or self-care (01) ==
LOC: ED 22:27 → CCU 22:29
PROVIDERS: ADMIT Internal Medicine; ATTEND Internal Medicine
DX: R00.1 Bradycardia, unspecified (principal); I95.9 Hypotension, unspecified; T44.7X5A Adverse effect of beta-adrenoreceptor antagonists, initial encounter; I48.0 Paroxysmal atrial fibrillation; I10 Essential (primary) hypertension; E78.5 Hyperlipidemia, unspecified; I27.20 Pulmonary hypertension, unspecified; E79.0 Hyperuricemia without signs of inflammatory arthritis and tophaceous disease; E66.01 Morbid (severe) obesity due to excess calories; Z79.01 Long term (current) use of anticoagulants; Z51.81 Encounter for therapeutic drug level monitoring; Z20.822 Contact with and (suspected) exposure to COVID-19; Z68.41 Body mass index [BMI] 40.0-44.9, adult; Z95.2 Presence of prosthetic heart valve; Z88.8 Allergy status to other drugs, medicaments and biological substances; Z87.891 Personal history of nicotine dependence
CPT/HCPCS: 36415; 80053; 83735; 84484; 85025; 85610; 87502; 93005; 93010; 96374; 99285-25; A9270; C9803; J0461; J7121; U0003

== ENCOUNTER 2024-03-11 22:08 | Inpatient (IN) | payer MEDICARE, OTHER ==
[~2024-03-11] VITALS: Ht 180.3 cm; Wt 121.0 kg
[~2024-03-11 22:08] MED LIST changes: +AMOXICILLIN500 MG PO; +CEPHALEXIN500 M1 PO; +COREG25 MG PO; +FARXIGA10 MG PO; +FUROSEMIDE20 MG PO; +HYDROCODON-ACE1 EA10 PO; +JARDIANCE10 MG PO; +LO-DOSE ASPIRIN81 MG PO; +OZEMPIC0.25 MG/02 SUB-Q; +TRIAMCINOLONE A15 G1 TOP; +WARFARIN SODIUM5 MG PO
[2024-03-11 22:43] LABS: BASOPHILS 0.7 % (0-2)
[2024-03-11 22:45] LABS: EOSINOPHILS 0.7 % (0-6); HEMATOCRIT 36.2 % (35.0-50.0); HEMOGLOBIN 11.6 g/dL (12.0-18.0); LYMPHOCYTES 12.5 % (24-44); MCH 27.7 (27-36); MCHC 32.1 g/dl (30-36); MCV 86.3 fl (81-99); MONOCYTES 8.5 % (0-12); NEUTROPHILS 77.6 % (39-80); PLATELET COUNT 227 K/uL (140-440)
[2024-03-11 22:50] LABS: INR 2.43 (0.80-1.30); PROTIME 25.4 Sec (11.2-14.2)
[2024-03-11 23:00] LABS: ALBUMIN 3.2 g/dL (3.4-5.0); ALBUMIN/GLOBULIN RATIO 0.89 (1.1-2.4); ANION GAP 9.9 (7-21); BILIRUBIN, TOTAL 0.7 ng/dL (0.2-1.0); BUN/CREATININE RATIO 9.33 (6.0-28.6); CALCIUM 8.6 mg/dL (8.5-10.1); CREATININE, SERUM 1.5 mg/dL (0.70-1.30); POTASSIUM 2.9 mmol/L (3.5-5.1); PROTEIN, TOTAL 6.8 g/dL (6.4-8.2)
[2024-03-11 23:15] LABS: ABO O; ANTIBODY SCREEN NEGATIVE; RH NEGATIVE
[2024-03-11] MEDS ORDERED: POTASSIUM CHLORIDE 10 MEQ/100 ML BAG IV SCH (23:30)
[2024-03-11] MEDS ORDERED: LACTATED RINGER'S 1,000 ML IV SCH (23:45)
[2024-03-11] MEDS ORDERED: MAGNESIUM SULFATE 2 GM/50 ML BAG IV ONE (23:45)
[2024-03-12] VITALS (9 sets, daily range): BP systolic 99–119; BP diastolic 42–61
--- NOTE | 2024-03-12 01:00 | NUR ---
PT REPORTS NEED FOR ANOTHER BM, PT WAS UNABLE TO HOLD. INC OF SMALL AMT BLOODY OUTPUT W/ CLOTS. IV MAGNESIUM STARTED TO LEFT WRIST IV W/ LR CONTINUOUS AT 125MLS/HR.
[2024-03-12 01:09] LABS: BASOPHILS 0.3 % (0-2); EOSINOPHILS 0.7 % (0-6); HEMATOCRIT 32.4 % (35.0-50.0); HEMOGLOBIN 10.6 g/dL (12.0-18.0); LYMPHOCYTES 11.6 % (24-44); MCHC 32.9 g/dl (30-36); MCV 85.4 fl (81-99); NEUTROPHILS 79.4 % (39-80); PLATELET COUNT 200 K/uL (140-440); RBC 3.79 M/ul (4.3-5.7); RDW 19.2 (10.5-15.0)
--- NOTE | 2024-03-12 01:25 | NUR ---
PT ADMITTED TO ROOM 114 VIA STRETCHER. PT UP TO BSC FIRST THING, PASSED MOD SIZED LIQUID BLOODY MOVEMENT W/ CLOTS. DENIES PAIN. VSS. TELE PLACED PER ORDER. LSC. HRR. BTA. SKIN WNL. RAC IV INFUSING KCL STARTED IN ER W/ SOME PAIN. PT IS NPO. PT HAS OWN HORACIO HOSE ON, DECLINES REMOVAL FOR HS. CALL LIGHT WITHIN REACH.
[2024-03-12] MEDS ORDERED: POTASSIUM CHLORIDE 10 MEQ/100 ML BAG IV SCH (01:30)
--- NOTE | 2024-03-12 02:52 | NUR ---
PT SLEEPING SOUNDLY. APPEARS COMFORTABLE. IVF + IV KCL INFUSING. CALL LIGHT W/ IN REACH.
--- NOTE | 2024-03-12 03:08 | NUR ---
IV KCL #2 COMPLETED W/ SOME IV IRRITATION. IV APPEARS WNL. 3RD BAG STARTED. WILL MONITOR.
--- NOTE | 2024-03-12 05:08 | NUR ---
AWAKE, SLEEPING BETWEEN CARE. IV KCL COMPLETED, ANISH SHARPE
[2024-03-12 05:34] LABS: BASOPHILS 0.4 % (0-2); EOSINOPHILS 0.6 % (0-6); HEMATOCRIT 30.4 % (35.0-50.0); HEMOGLOBIN 9.9 g/dL (12.0-18.0); LYMPHOCYTES 11.9 % (24-44); MCH 27.8 (27-36); MCHC 32.5 g/dl (30-36); MCV 85.5 fl (81-99); MONOCYTES 7.1 % (0-12); PLATELET COUNT 186 K/uL (140-440); RBC 3.56 M/ul (4.3-5.7); RDW 19.1 (10.5-15.0)
--- NOTE | 2024-03-12 05:50 | NUR ---
PT AWAKE, USED BEDPAN, HAD LARGE AMT OF BLOODY OUTPUT. RAC IV DRSG CHANGED DRSG WAS DAMP AND LOOSENED. PT USED URINAL W/ SETUP.
[2024-03-12 05:51] LABS: ALBUMIN 2.6 g/dL (3.4-5.0); ALBUMIN/GLOBULIN RATIO 0.9 (1.1-2.4); ANION GAP 6.2 (7-21); BILIRUBIN, TOTAL 0.9 ng/dL (0.2-1.0); BUN/CREATININE RATIO 10.52 (6.0-28.6); CALCIUM 8.4 mg/dL (8.5-10.1); CREATININE, SERUM 1.33 mg/dL (0.70-1.30); POTASSIUM 3.2 mmol/L (3.5-5.1); PROTEIN, TOTAL 5.5 g/dL (6.4-8.2)
--- NOTE | 2024-03-12 05:53 | NUR ---
CAN ENTERED ROOM TO OBTAIN VITALS. PT STATED THAT HE FELT LIKE HE NEEDED TO GO TO THE BATHROOM. BLENDING KETTLE TENDER PLACED PT ON BED ROTHMAN. PT HAD LARGE BLOODY OUTPUT WITH CLOTS. BLENDING KETTLE TENDER GOT MANAGER BUSINESS OPERATIONS TO HELP WITH BED CHANGE. PT GIVEN NEW BRIEF AND PT USED URINAL. BLENDING KETTLE TENDER THEN OBTAINED AND DOCUMENTED VITALS AND I&O. PT STATES NO FURTHER NEEDS AT THIS TIME. CALL LIGHT WITHIN REACH.
--- NOTE | 2024-03-12 07:27 | NUR ---
REPORT RECEIVED FROM ORDER BUILDER LOADER RN. PATIENT RESTING IN BED. IVF INFUSING WITH NO ISSUES OR CONCERNS. PATIENT DENIES ANY NEEDS AT THIS TIME. CALL LIGHT WITHIN REACH.
[2024-03-12] MEDS ORDERED: PHYTONADIONE 5 MG in DEXTROSE 5% 50 ML IV STA (08:18)
--- NOTE | 2024-03-12 08:50 | NUR ---
PATIENT RESTING IN BED, AWAKE TALKING ON PHONE. VSS. C/O CRAMPING LIKE PAIN TO HIS LOWER ABDOMEN. TELE IN PLACE. HR IRREGULAR. LUNGS CTA, DIM IN BASES. PEDAL PULSES STRONG BLLE. IV SITES PATENT. NO NOTED BLEEDING FROM RECTUM AT THIS TIME. PATIENT DENIES ANY DIZZYNESS, OR LIGHT HEADEDNESS. DENIES VAZQUEZ. BP'S SOFT AT THIS TIME. IV MEDICATION ADMINSTERED. NO FURTHER NEEDS AT THIS TIME. CALL LIGHT WITHIN REACH.
[2024-03-12] MEDS ORDERED: POTASSIUM CHLORIDE 40 MEQ in DEXTROSE 5% 250 ML IV ONE (09:00)
--- NOTE | 2024-03-12 09:43 | NUR ---
PT NOT AVAILABLE FOR VISIT. PROVIDED PRAYER.
--- NOTE | 2024-03-12 09:51 | NUR ---
IV POTASSIUM HUNG. PATIENT REPORTS FEELING THE NEED TO HAVE A BM. PATIENT REQUESTING TO BE ASSISTED TO THE BSC. RN EDUCATED PATIENT ON SAFETY AND RISK OF FALLING DURING A TRANSFER TO THE BSC. PATIENT AGREEDED TO USING THE BED ROTHMAN.
--- NOTE | 2024-03-12 10:16 | NUR ---
UR CLINICAL REVIEW: 2MN JAYSHREE-MEETS INPT MEDICARE FROM OBS TO INPT 03/12/24 @ 0822 ORDER MATCHES REG NO AUTH REQUIRED PER MEDICARE RULES DC TO HOME WHEN STABLE.
--- NOTE | 2024-03-12 10:45 | NUR ---
PAINT STOCKMAN STAFF IN ROOM WITH PATIENT ASSISTING PATIENT WITH USING BEDPAN. NOTED BLOODY STOOL AND PASSING OF LARGE AMOUNTS OF DARK RED CLOTS.
--- NOTE | 2024-03-12 11:35 | NUR ---
PATIENT RESTING IN BED. NOTED NO VOID THIS SHIFT. RN DISCUSSED THIS WITH PATIENT. PATIENT DENIES THE NEED TO VOID AT THIS TIME. RN ENCOURAGED PATIENT TO TRY AND VOID. ROBIN STATED, " I WILL TRY."
[2024-03-12] MEDS ORDERED: PHARMACY RENAL DOSE ADJUSTMENT 1 DOSE MISC PO SCH (12:00)
[2024-03-12 12:13] LABS: BASOPHILS 0.4 % (0-2); EOSINOPHILS 0.7 % (0-6); HEMATOCRIT 27.9 % (35.0-50.0); HEMOGLOBIN 9.2 g/dL (12.0-18.0); MCH 28.5 (27-36); MCHC 33.1 g/dl (30-36); MONOCYTES 8.9 % (0-12); PLATELET COUNT 183 K/uL (140-440); RBC 3.24 M/ul (4.3-5.7); RDW 19.2 (10.5-15.0)
[2024-03-12 12:23] LABS: INR 1.76 (0.80-1.30); PROTIME 19.6 Sec (11.2-14.2)
--- NOTE | 2024-03-12 12:49 | NUR ---
PATIENT RESTING IN BED WITH FAMILY FRIEND AT BEDSIDE. REQUESTING MORE ICE CHIPS. HALF A CUP OF ICE CHIPS GIVEN. PATIENT WITH NO COMPLAINTS AT THIS TIME. CALL LIGHT WITHIN REACH.
--- NOTE | 2024-03-12 13:30 | NUR ---
PATIENT REQUESTING HE BE ASSISTED TO BSC. PATIENT ASSISTED TO BSC WITH 2 PERSON TRANSFER AND FWW. PATIENT TOLLERATED WELL, BP WHILE SITTING ON BSC 115/43 (61). NOTED NAM RED BM WITH MANY CLOTS. NOTED LARGEST CLOT TO BE LEEROY SIZED. PATIENT BECAME LIGHTHEADED DURING TRANSFER BACK TO BED. ONCE BACK IN BED PATIENT WAS LAID FLAT. BP CHECKED 121/62 (73). PATIENT SYMTPOMS DIMINISHED QUICKLY WITH POSITION CHANGED. NO FURTHER NEEDS CALL LIGHT WITHIN REACH.
--- NOTE | 2024-03-12 13:31 | NUR ---
MED REC COMPLETE
--- NOTE | 2024-03-12 13:58 | NUR ---
PATIENT ABLE TO VOID.
--- NOTE | 2024-03-12 14:00 | NUR ---
Spoke with Jamie. He states he lives alone in an apartment with a ramp down to his apartment. He does not use any DME. His pcp is Dr. Gongora, he is retiring, pt will switch to Dr. Elise. Pt is waiting to see Dr. Gutierrez. He states he has completed his last 2 colonosocopys. He believe he will need a scope. He plans on dc to home when he is cleared medically. He denies financial issues. He states his cousin will assist him if needed. He does his own, cooking, shopping, cleaning. He denies needing any help.
[2024-03-12] MEDS ORDERED: POLYETHYLENE GLYCOL 3350 BOTTLE PO SCH (14:15)
--- NOTE | 2024-03-12 15:00 | NUR ---
PATIENT RESTING IN BED. PLAYING GAMES ON PHONE. DENIES ANY ABD PAIN, NAUSEA OR DISCOMFORT AT THIS TIME. DENIES ANY NEEDS. CALL LIGHT WITHIN REACH.
--- NOTE | 2024-03-12 15:22 | EKG ---
[facility] [address] [facility] [place] [address] Signed Sinus rhythm with frequent premature ventricular complexes Right axis deviation Right ventricular hypertrophy Nonspecific ST and T wave abnormality Prolonged QT Abnormal ECG When compared with ECG of 19-AUG-2023 09:22, frequent premature ventricular complexes are now present Confirmed by Jose Mckeon MD ([id number]) on 03/12/2024 3:22:47 PM Electronically Signed By: JOSE MCKEON MD 03/12/24 1522 PATIENT NAME: JUSTINAYAD Monique Electrocardiogram DATE OF : 55 PHYSICIAN: JOSE MCKEON MD REPORT #: [id number] REPORT IS CONFIDENTIAL AND NOT TO BE RELEASED WITHOUT AUTHORIZATION
--- NOTE | 2024-03-12 16:21 | NUR ---
PATIENT RESTING IN BED. REPORTS CRAMPING IN LOWER ABDOMEN. DENIES ANY NAUSEA. BOWEL TONES ACTIVE. RN DISCUSSED CONCERNS OF HEART FAILURE AND MAINTANCE FLUIDS WITH HOSPITALIST. IV FLUIDS STOPPED AT THIS TIME, PER MD PATIENT ON CLEAR LIQUID DIET. NO FURTHER NEEDS AT THIS TIME. CALL LIGHT WITHIN REACH.
--- NOTE | 2024-03-12 17:40 | NUR ---
PATIENT RESTING IN BED WATCHING TV. FINISHED CLEAR LIQUID DINNER. DENIES ANY ABDOMINAL PAIN AT THIS TIME. DENIES ANY NAUSEA. BOWEL PREP STARTED, WITH PATIENT. VSS. NO FURTHER NEEDS AT THIS TIME. CALL LIGHT WITHIN REACH.
--- NOTE | 2024-03-12 19:02 | NUR ---
SHIFT REPORT RECEIVED FROM BRISSA MORA, PT AWAKE AND ALERT, REQUESTING TO BE MOVED UP IN BED, DONE WITH 2 PA, DISCUSSED NEED TO USE BEDPAN WARD, PT HESIDENT BUT AGREES, BUT DENIES OTHER NEEDS AT THIS TIME, BED IN LOW POSITION, SIDE RAILS UP X 2.
[2024-03-12 20:14] LABS: BASOPHILS 0.5 % (0-2); EOSINOPHILS 0.8 % (0-6); HEMATOCRIT 25.7 % (35.0-50.0); HEMOGLOBIN 8.6 g/dL (12.0-18.0); LYMPHOCYTES 9.8 % (24-44); MCH 28.6 (27-36); MCHC 33.4 g/dl (30-36); MCV 85.7 fl (81-99); MONOCYTES 10.1 % (0-12); NEUTROPHILS 78.8 % (39-80); PLATELET COUNT 191 K/uL (140-440)
--- NOTE | 2024-03-12 20:44 | NUR ---
PT AWAKE AND ALERT, DENIES PAIN AT THIS TIME, VS COMPLETED, REVIEWED 1999 LABS, H/H 8.6/25.7, PT REQUESTING APPLE JUICE, PLAN TO CLARIFY IF ADDITIONAL DOSE OF MIRALAX DUE, SL L WRIST WITH GOOD BLOOD RETURN, FLUSHES WELL, SL R AC, GOOD BLOOD RETURN AND FLUSHES WELL, PT STATES HE MAY NEED THE BEDPAN SOON BUT WILL CALL RN, PLAN OF CARE DISCUSSED AND ASSESSMENT COMPLETED. CALL LIGHT IN REACH.
--- NOTE | 2024-03-12 21:30 | NUR ---
PT ASSISTED ON BEDPAN WITH 2PA, HAD LIQUID DARK RED BROWN STOOL WITH SMALL CLUMPS OF DARK REDDENED FORMED, FIRM STOOL, PERICARE GIVEN, PT DENIES PAIN OR OTHER NEEDS AT THIS TIME, APPLE JUICE GIVEN AND 2ND BOTTLE OF MIRALAX (FOR TOTAL DOSE) GIVEN, PT DENIES NEEDS.
--- NOTE | 2024-03-12 22:45 | NUR ---
TC TO DR KULKARNI, DISCUSSED NPO STATUS AND IF MD WOULD LIKE TO START IVF, REPORTED PT'S BREATH SOUNDS CLEAR, SLIGHTLY DIM IN BASES, STATES HE WILL ORDER IVF WHEN PT NPO. DISCUSSED PARAMETERS FOR CALLING WITH 0200 BLOOD DRAW, STATES IF HGB LESS THAN 7.5 TO CALL HIM.
[2024-03-12] MEDS ORDERED: LACTATED RINGER'S 1,000 ML IV SCH (23:00)
--- NOTE | 2024-03-12 23:20 | NUR ---
PT AWAKE AND ALERT, DENIES REQUESTS, LAST BOTTLE OF MIRALAX COMPLETED, WELL APPLE JUICE, DISCUSSED PLAN TO START IVF AT 2400, PT VOICED UNDERSTANDING.
[2024-03-13] VITALS (16 sets, daily range): BP systolic 103–127; BP diastolic 45–80
--- NOTE | 2024-03-13 00:01 | NUR ---
PT RESTING WITH EYES CLOSED, AWAKEN TO START IVF PER ORDER, LR STARTED AT 100ML/HR PER LEFT WRIST SL, SITE INTACT, PT WITHOUT REQUESTS AT THIS TIME.
--- NOTE | 2024-03-13 00:39 | NUR ---
NURSE CALLED TO ROOM, PT C/O LOWER BACK PAIN, WANTS TO TRY SITTING ON SIDE OF BED, ASSIST PER 2 NURSES, DENIES DIZZINESS WITH SITTING, BRIEFLY STOOD TO ADJUST DRAW SHEETS AND CHUX, BACK TO BED, PLACED ON BEDPAN.
--- NOTE | 2024-03-13 01:25 | NUR ---
PT AWAKE, DONE WITH BED ROTHMAN, HAD 400ML OF DARK BROWN DARK RED COLORED LIQUID STOOL, FEW SMALL FORMED STOOL PARTICALS NOTED, NO BLOOD CLOTS NOTED IN STOOL, PT VOIDED 400ML YELLOW URINE PER URINAL. PT REPOSITIONED UP IN BED, PT TALKATIVE, WITHOUT COMPLAINTS EXCEPT DRY MOUTH, DECLINED ORAL SWAB, WANTS ICE, DISCUSSED UNABLE TO GIVE ICE DUE TO NPO STATUS. IVF INFUSING WELL, SITE INTACT, VS STABLE.
--- NOTE | 2024-03-13 01:59 | NUR ---
LAB IN FOR TIMED BLOOD DRAW.
[2024-03-13 02:03] LABS: BASOPHILS 0.4 % (0-2); EOSINOPHILS 1.4 % (0-6); HEMATOCRIT 24.6 % (35.0-50.0); HEMOGLOBIN 8.1 g/dL (12.0-18.0); LYMPHOCYTES 11.6 % (24-44); MCH 28.2 (27-36); MCHC 33.2 g/dl (30-36); MCV 85.1 fl (81-99); MONOCYTES 8.4 % (0-12); NEUTROPHILS 78.2 % (39-80); PLATELET COUNT 178 K/uL (140-440); RBC 2.89 M/ul (4.3-5.7); RDW 18.7 (10.5-15.0)
--- NOTE | 2024-03-13 02:06 | NUR ---
LABS REVIEWED, H/H NOW 8.1/24.6, NEXT SCHEDULED DRAW 0800.
--- NOTE | 2024-03-13 03:05 | NUR ---
PT APEARS TO SLEEP, RESP EVEN AND REG, IVF INFUSING WELL.
--- NOTE | 2024-03-13 03:36 | NUR ---
PT AWAKE BRIEFLY, NEW BAG OF LR HUNG, SITE INTACT, INFUSING WELL AT 100ML/HR
--- NOTE | 2024-03-13 04:44 | NUR ---
PT APPEARS TO SLEEP, RESP EVEN AND REG, WITHOUT DISTRESS.
--- NOTE | 2024-03-13 05:36 | NUR ---
PT HAD APPROX 100ML OF LIQUID DARK RED BROWN STOOL, VOIDED 300ML YELLOW URINE, PERIARE CLEANSED, PT GIVEN SWAB FOR ORAL CARE PER REQUEST, IV SITE PATENT, IVF INFUSING WELL, PT WITHOUT COMPLAINTS OF PAIN AT THIS TIME.
[2024-03-13] MEDS ORDERED: AMPICILLIN SOD 2 GM in SODIUM CHLORIDE 0.9% 100 ML IV SCH (07:00)
[2024-03-13] MEDS ORDERED: GENTAMICIN SULFATE IV SCH (07:00)
[2024-03-13] MEDS ORDERED: DEXTROSE 5% IV SCH (07:00)
--- NOTE | 2024-03-13 07:30 | NUR ---
REPORT RECEIVED FROM PRIMARY CLASS TEACHER RN. PATIENT RESTING IN BED WITH EYES CLOSED. RESPIRATIONS EVEN AND UNLABORED. CALL LIGHT WITHIN REACH.
[2024-03-13 08:04] LABS: BASOPHILS 0.5 % (0-2); EOSINOPHILS 1.9 % (0-6); HEMATOCRIT 24.7 % (35.0-50.0); HEMOGLOBIN 8.2 g/dL (12.0-18.0); LYMPHOCYTES 12.6 % (24-44); MCH 28.5 (27-36); MCHC 33.3 g/dl (30-36); MCV 85.7 fl (81-99); MONOCYTES 8.2 % (0-12); NEUTROPHILS 76.8 % (39-80); PLATELET COUNT 173 K/uL (140-440); RBC 2.88 M/ul (4.3-5.7); RDW 19.1 (10.5-15.0)
[2024-03-13 08:13] LABS: ANION GAP 9.2 (7-21); BUN/CREATININE RATIO 13.27 (6.0-28.6); CALCIUM 8.3 mg/dL (8.5-10.1); CREATININE, SERUM 1.13 mg/dL (0.70-1.30); INR 1.35 (0.80-1.30); MAGNESIUM 2.1 mg/dL (1.8-2.4); POTASSIUM 3.2 mmol/L (3.5-5.1); PROTIME 15.9 Sec (11.2-14.2)
--- NOTE | 2024-03-13 09:06 | NUR ---
PATIENT IS RESTING IN BED WITH FAMILY FIREND AT BEDSIDE. VSS. REPORTS CRAMPING IN LOWER ABDOMEN CONTINUES IN WAVES. NO CURRENT PAIN TO REPORT. DENIES NAUSEA. BOWEL TONES ACTIVE X 4 QUADRANT. CONSENT SIGNED FOR SCHEDULED PROCEDURE THIS AFTERNOON. LUNGS CTA. TELE IN PLACE. NO FURTHER NEEDS AT THIS TIME. CALL LIGHT WITHIN REACH.
[2024-03-13] MEDS ORDERED: POTASSIUM CHLORIDE 40 MEQ,LIDOCAINE HCL 1% 40 MG in DEXTROSE 5% 250 ML IV ONE (10:00)
--- NOTE | 2024-03-13 10:22 | NUR ---
PATIENT ASSISTED TO BED ROTHMAN. TOLLERATED WELL. LIQUID DARK RED JODI COLORED BOWEL MOVEMENT. PATIENT WITH VOID IN URINAL. MD DE GUZMAN IN TO SEE PATIENT. CALL LIGHT WITHIN REACH.
--- NOTE | 2024-03-13 10:50 | NUR ---
Patient is laying in bed. No complaint of pain or nausea. Call light has been placed within reach
--- NOTE | 2024-03-13 12:00 | NUR ---
MD PLUNKETT CALLED. UPDATE GIVEN, PATIENT BEING PREPED FOR PROCEDURE.
--- NOTE | 2024-03-13 12:47 | NUR ---
PATIENT ASSISTED TO BED ROTHMAN AND USED URINAL WHILE ON BED ROTHMAN. TOLLERATED WELL.LIQUID DARK RED JODI COLORED BM NOTED. PATIENT WITH NO FURTHER NEEDS. CALL LIGHT WITHIN REACH.
[2024-03-13] MEDS ORDERED: propofoL 200 MG/20 ML VIAL ONE (13:03)
[2024-03-13] MEDS ORDERED: LIDOCAINE HCL 2% 5 ML SDV ONE (13:03)
--- NOTE | 2024-03-13 13:15 | NUR ---
PATIENT LEFT THE FLOOR WITH OR NURSES.
[2024-03-13] MEDS ORDERED: ePHEDrine sulfate 50 MG/ML AMP ONE (13:19)
--- NOTE | 2024-03-13 14:11 | NUR ---
03/13/24 1411 SOHEILA NOYOLA 1351 PT ARRIVED TO PACU VIA STREACHER. PT AWAKE AND TALKING. PT HAS NATURAL AIRWAY IN PLACE, PT ON 2L OF OXYGEN VIA NASAL CANULLA. PT LAYING LEFT LATERALLY. REPORT TAKEN FROM ISABELA MORA. ALL MONITORS ATTACHED. PT BREATHING EQUAL AND UNLABORED. 1352 PT OXYGEN REMOVED PT OXYGEN SAT ABOVE 96% ON 2L. 1404 PT PASSING GAS, ALONG WITH BLOOD TINGED WATERY STOOL 1406 PT PLACED BACK ON OXYGEN DUE TO PT OXYGEN SATURATION FLUCTUATING FROM 90% TO93% ON RA. PT BREATHING EQUAL AND UNLABORED.
--- NOTE | 2024-03-13 14:40 | NUR ---
PATIENT RETURNED FROM PACU. RESTING IN BED. REPORT RECEIVED FROM PACU NURSE. PATIENT ON 2L O2 VIA NC R/T SAO2 BELOW NORMAL. DENIES ANY PAIN AT THIS TIME, DENIES ANY NAUSEA OR SOB. VSS. CALL LIGHT WITHIN REACH.
--- NOTE | 2024-03-13 14:42 | CONS ---
[facility] [address], [place] [address] Signed DATE OF CONSULTATION: 03/12/2024 REQUESTING PHYSICIAN: Dr. Mckeon. PROBLEM: Hematochezia. HISTORY OF PRESENT ILLNESS: This 69-year-old white man presented to the emergency room yesterday on March 12 following work and having 24 hours of dark blood per rectum. He was found on evaluation to have a hematocrit initially of 32.4, subsequently 27.9. Quite notably he is chronically anticoagulated with Coumadin for underlying atrial fibrillation. He additionally has mitral and aortic valve replacements from the past, but these are biologic valves and no anticoagulation is required for that. I was called by Dr. Mckeon in consultation for his hematochezia and efforts at reversing anticoagulation have been initiated with vitamin K. His presentation protime was therapeutic at 25.4 with an INR of 2.43. Subsequent evaluation after vitamin K administration showed the INR down to 1.76, still elevated of course. The patient is known to me from the past having undergone colonoscopy in 2020. There is certainly confirmed to have multiple diverticula. He has also had adenomatous polyps. He has had no associated hematemesis. PAST MEDICAL HISTORY: Does include hypertension, congestive heart failure and atrial fibrillation as described as well as distant history of tricuspid valve repair and mitral valve replacement, though I believe he actually had an aortic valve replacement rather than tricuspid valve repair. He has had appendectomy, hernia repair, and tonsillectomy. MEDICATIONS: At admission include potassium chloride, Coumadin, aspirin, Lasix, Ozempic, allopurinol, atorvastatin, and sildenafil. At present, the patient has no abdominal pain. He denies epigastric pain. He has had episodes of hematochezia since admission. His most recent labs showed a hematocrit of 27.9, white count of 8.2, platelets 183,000. His Chem profile was notable for hypokalemia at presentation was potassium of 2.9, now 3.2 with replacement therapy and creatinine originally 1.50, now 1.33. Liver enzymes are essentially normal. Electronically Signed By: EMERSON PLUNKETT MD 03/13/24 1442 PATIENT NAME: AYAD ANDERSON CONSULTATION DATE OF : 55 REPORT #: [id number] PHYSICIAN: EMERSON PLUNKETT MD PCP: ARMIN HADLEY MD REPORT IS CONFIDENTIAL AND NOT TO BE RELEASED WITHOUT AUTHORIZATION [facility] [address], [place] [address] Signed REVIEW OF SYSTEMS: He denies any shortness of breath or chest pain. He did have some lightheadedness when bending over in the recent past since hospitalization and he has been largely confined to bed and out of bed with assist. The patient is accompanied today by his cousin, Yeni Mike. SOCIAL HISTORY: He lives in [place], [place]. His primary provider is Dr. Armin Hadley. He works part-time at as a driver messenger. PHYSICAL EXAMINATION: GENERAL: Morbidly obese white man who does not look to be severely distressed at this time. VITAL SIGNS: Temperature is 97.8, pulse 63, blood pressure 115/43. NECK: Trachea is midline. CHEST: Clear. HEART: Regular. He has no aortic or mitral valve murmur; valve sounds are sharp, but not mechanical. ABDOMEN: Quite markedly obese, but easily palpated, soft with no findings of ascites, tenderness or mass. EXTREMITIES: Show no clubbing, cyanosis, or edema. He has support stockings on at this time. ASSESSMENT: The patient has hematochezia and a distant history of colonic polyps as well as diverticulosis. His bleeding pattern is most consistent with diverticular bleed. I would recommend bowel prep to be undertaken today including MiraLAX and clear liquids anticipating colonoscopy tomorrow. The primary purpose of this of course is to ascertain the source of bleeding and to ensure that it is not related to malignancy, colitis, or other similar problem (unlikely). Most likely represents diverticular bleeding for which occasional intervention can be beneficial including clips, injection therapy and so on. Most commonly diverticular bleeding resolves on its own of course. Continued efforts at reversing anticoagulation are appropriate. Clear liquids only would be recommended at this time. Would likely proceed to colonoscopy mid day tomorrow. Transfusion therapy would be initiated should the need warrant. He is due for a repeat lab study of his CBC at 8:00 p.m. The risk of bleeding, infection, perforation, and other unforeseen complications related to colonoscopy were reviewed with him. He understands and wishes to proceed. Electronically Signed By: EMERSON PLUNKETT MD 03/13/24 1442 PATIENT NAME: AYAD ANDERSON CONSULTATION DATE OF : 55 REPORT #: [id number] PHYSICIAN: EMERSON PLUNKETT MD PCP: ARMIN HADLEY MD REPORT IS CONFIDENTIAL AND NOT TO BE RELEASED WITHOUT AUTHORIZATION [address] [address] Signed Emerson Plunkett MD JM/MODL /[id number] cc: MD Dr. Linda Tapia Copies: ARMIN HADLEY MD ~ Electronically Signed By: EMERSON PLUNKETT MD 03/13/24 1442 PATIENT NAME: JUSTINAYAD RODRIGUEZ CONSULTATION DATE OF : 55 REPORT #: [id number] PHYSICIAN: EMERSON PLUNKETT MD PCP: ARMIN HADLEY MD REPORT IS CONFIDENTIAL AND NOT TO BE RELEASED WITHOUT AUTHORIZATION
--- NOTE | 2024-03-13 14:52 | OR ---
[facility] [address], [place] [address] Signed DATE OF OPERATION: 03/13/2024 SURGEON: Emerson Plunkett MD PREOPERATIVE DIAGNOSES: 1. Hematochezia, known diverticulosis. 2. Multiple medical problems including chronic anticoagulation for atrial fibrillation. POSTOPERATIVE DIAGNOSIS: Extensive diverticulosis. No sign of active or recent bleeding. PROCEDURE: Total colonoscopy with biopsy of rectum to rule out occult colitis. ANESTHESIA: Propofol infusion; Kiara Matthews CRNA. INDICATION: This morbidly obese markedly debilitated 69-year-old white man presented to the emergency room on March 11, 2024 with significant hematochezia. His initial hematocrit was over 30, now 24. He had multiple bouts of raquel blood per rectum. He is known to have diverticulosis and polyps in the past. Last undergoing colonoscopy in the past few years. He is anticoagulated related to chronic atrial fibrillation; additionally has aortic and mitral valve replacement (biologic composite type, not requiring anticoagulation). He has undergone bowel preparation, now to undergo colonoscopy to better characterize the problem and secure hemostasis if possible. He tolerated the bowel prep well and has only "rust-colored" water per rectum at this point. Preoperative antibiotic ampicillin and gentamicin have been given as prophylaxis regarding his bowel. He understands risk of bleeding, infection, perforation, and other unforeseen complication, wished to proceed. FINDINGS: There is no sign of active bleeding. There was no fresh or recent blood, certainly no clots. Colonoscopy was extended well proximal to the sigmoid where numerous diverticula were noted, indeed into the right colon which was entirely normal. There was no evidence of colitis, polyp, cancer, or active bleeding from the diverticula, though I suspect the cause of his problem was diverticulosis which has now resolved. Electronically Signed By: EMERSON PLUNKETT MD 03/13/24 1452 PATIENT NAME: AYAD ANDERSON OPERATIVE REPORT DATE OF : 55 REPORT #: [id number] PHYSICIAN: EMERSON PLUNKETT MD PCP: ROSA HADLEY MD REPORT IS CONFIDENTIAL AND NOT TO BE RELEASED WITHOUT AUTHORIZATION [facility] [address], [place] [address] Signed PROCEDURE IN DETAIL: The patient was brought to the endoscopy suite and placed in lateral decubitus position, given intravenous sedation with propofol infusional technique by the angiography technologist. Full cardiopulmonary monitoring was maintained. Preoperative antibiotic of ampicillin and gentamicin had been given for valve prophylaxis. Digital rectal examination was normal. An Olympus video colonoscope was passed in the rectum and manipulated throughout the colon noting extensive diverticular changes of sigmoid and left colon. Scope was passed more proximally ultimately to the right colon. Specific visualization of the cecum was not forthcoming, but there was absolutely no abnormality proximal to this area. Indeed, no sign of blood or remnant of blood proximal to the mid descending colon actually. The scope was carefully withdrawn. Examination throughout showed only diverticulosis of the left colon and sigmoid. The rectum was otherwise reasonably normal. Biopsies were taken of rectum to assess for occult colitis. Scope was removed. The patient was taken to the recovery room in good condition. CONCLUDING DIAGNOSIS: Apparent resolution of hematochezia, most likely related to diverticulosis. PLAN: I would hold off on anticoagulation for the time being as the main indication is that of atrial fibrillation rather than bowel prophylaxis. I would initiate a liquid diet and advance as appropriate. Ultimately, a high-fiber diet would be appropriate. He will return to the regular gustafson and I will review these findings with Dr. Mckeon, the hospitalist. Emerson Plunkett MD JM/MODL /[id number] cc: Dr. Linda Hadley Electronically Signed By: EMERSON PLUNKETT MD 03/13/24 1452 PATIENT NAME: AYAD ANDERSON Monique OPERATIVE REPORT DATE OF : 55 REPORT #: [id number] PHYSICIAN: EMERSON PLUNKETT MD PCP: ROSA HADLEY MD REPORT IS CONFIDENTIAL AND NOT TO BE RELEASED WITHOUT AUTHORIZATION [address] [address] Signed Copies: ~ Electronically Signed By: EMERSON PLUNKETT MD 03/13/24 1452 PATIENT NAME: AYAD ANDERSON OPERATIVE REPORT DATE OF : 55 REPORT #: [id number] PHYSICIAN: EMERSON PLUNKETT MD PCP: ROSA HADLEY MD REPORT IS CONFIDENTIAL AND NOT TO BE RELEASED WITHOUT AUTHORIZATION
[2024-03-13 15:34] LABS: BASOPHILS 0.5 % (0-2); EOSINOPHILS 1.5 % (0-6); HEMATOCRIT 23.2 % (35.0-50.0); HEMOGLOBIN 7.7 g/dL (12.0-18.0); LYMPHOCYTES 14.3 % (24-44); MCH 28.6 (27-36); MCHC 33.3 g/dl (30-36); MCV 86.1 fl (81-99); MONOCYTES 10.5 % (0-12); NEUTROPHILS 73.2 % (39-80); PLATELET COUNT 156 K/uL (140-440); RDW 19.1 (10.5-15.0)
--- NOTE | 2024-03-13 16:10 | NUR ---
PATIENT RESTING IN BED WITH NO PAIN OR DISCOMFORT. DENEIS ANY NAUSEA. DENIES PAIN OR DISCOMFORT. BOWEL TONES PRESENT X 4 QUADRANTS. CALL LIGHT WITHIN REACH.
--- NOTE | 2024-03-13 16:49 | NUR ---
RESTING IN BED. VSS. PATIENT SAO2 WNL ON ROOM AIR. NO C/O PAIN OR DISCOMFORT. BOWEL TONES PRESENT X 4 QUADRANTS. NO NEEDS AT THIS TIME. CALL LIGHT WITHIN REACH.
--- NOTE | 2024-03-13 17:45 | NUR ---
PATIENT RESTING IN BED WITH NO ISSUES OR CONERNS. DENIES ANY NEEDS AT THIS TIME.
--- NOTE | 2024-03-13 18:15 | NUR ---
PATIENT ASSISTED TO BSC. SMALL JODI LIQUID BM. VOID IN URINAL. NO FURTHER NEEDS AT THIS TIME. CALL LIGHT WITHIN REACH.
--- NOTE | 2024-03-13 19:00 | NUR ---
SHIFT REPORT RECEIVED FROM BRISSA MORA, PT APPEARS TO SLEEP, RESP EVEN AND REGULAR, WITHOUT DISTRESS, HOB ELEVATED APPROX 30 DEGREES, SIDE RAILS UP X 2.
--- NOTE | 2024-03-13 19:52 | NUR ---
LAB INTO ROOM FOR CBC BLOOD DRAW.
[2024-03-13 20:12] LABS: BASOPHILS 3.6 % (0-2); EOSINOPHILS 1.7 % (0-6); HEMATOCRIT 22.8 % (35.0-50.0); HEMOGLOBIN 7.4 g/dL (12.0-18.0); LYMPHOCYTES 9.1 % (24-44); MCH 28.4 (27-36); MCHC 32.6 g/dl (30-36); MCV 87.1 fl (81-99); MONOCYTES 10.3 % (0-12); NEUTROPHILS 75.3 % (39-80); PLATELET COUNT 164 K/uL (140-440); RBC 2.62 M/ul (4.3-5.7); RDW 19.2 (10.5-15.0)
--- NOTE | 2024-03-13 20:41 | NUR ---
VS COMPLETED PER SHAWNEE RHODES, REVIEWED AND WNL.
--- NOTE | 2024-03-13 21:00 | NUR ---
DR KULKARNI AT RN STATION. NO FURTHER CBC'S ORDERED ON pt, TO PUT IN ORDERS FOR LABS. PER MD-NOTIFY HIM IF HEMOGLOBIN DROPS BELOW 7 DURING THE NIGHT. REPEATED BACK TO CONFIRM. PRIMARY RN ROSA M AWARE AND UPDATED.
--- NOTE | 2024-03-13 21:40 | NUR ---
PT AWAKE AND ALERT, ASSESSMENT COMPLETED, NOTED SL IN LEFT WRIST LEAKING WITH FLUSH, REQUESTING FLOAT RN TO RESTART DUE TO POTENTIAL DIFFICULTY AND NEED TO HAVE IV ACCESS. PT WITHOUT C/O PAIN, HOB ELEVATED APPROX 30 DEGREES, SIDE RAILS UP X 2, CONSENT FOR POSSIBLE BLOOD TRANSFUSION OBTAINED PER DR KULKARNI.
--- NOTE | 2024-03-13 22:40 | NUR ---
18 G IV PLACED IN RIGHT AC PER LAURA RN USING U/S AFTER 1 UNSUCESSFUL ATTEMPT, SL IN LEFT WRIST D'FABIO INTACT DUE TO LEAKING, PT DENIES NEEDS AT THIS TIME.
--- NOTE | 2024-03-13 23:35 | NUR ---
PT APPEARS TO SLEEP, RESP EVEN AND REG, HOB ELEVATED, REMAINS ON TELE #1
[2024-03-14] VITALS (10 sets, daily range): BP systolic 103–124; BP diastolic 42–58
--- NOTE | 2024-03-14 00:05 | NUR ---
PT HAD SMALL BRONZE BROWN STOOL PER BEDPAN AND VOIDED 300ML YELLOW URINE PER REPORT OF LIANA RHODES.
--- NOTE | 2024-03-14 02:00 | NUR ---
PT AWAKEN FOR VS AND BLOOD DRAW, VS STABLE, BLOOD DRAW PER RIGHT AC SL AFTER APPROX 8ML WASTED, FRESH WATER GIVEN, PT DENIES NEEDS AT THIS TIME.
[2024-03-14 02:10] LABS: BASOPHILS 0.3 % (0-2); EOSINOPHILS 1.5 % (0-6); HEMATOCRIT 23.1 % (35.0-50.0); HEMOGLOBIN 7.8 g/dL (12.0-18.0); LYMPHOCYTES 13.3 % (24-44); MCHC 33.7 g/dl (30-36); MCV 86.1 fl (81-99); MONOCYTES 9.6 % (0-12); NEUTROPHILS 75.3 % (39-80); PLATELET COUNT 166 K/uL (140-440); RBC 2.68 M/ul (4.3-5.7)
--- NOTE | 2024-03-14 02:30 | NUR ---
0205 LABS REVIEWED H/H 7.8/23.1.
--- NOTE | 2024-03-14 03:29 | NUR ---
Tele battery changed.
--- NOTE | 2024-03-14 04:05 | NUR ---
PT APPEARS TO SLEEP, RESP EVEN AND REG, WITHOUT DISTRESS.
--- NOTE | 2024-03-14 05:20 | NUR ---
PT RESTING QUIETLY, RESP EVEN AND REG, VS COMPLETED, FRESH WATER GIVEN, PT DENIES OTHER NEEDS AT THIS TIME.
--- NOTE | 2024-03-14 07:10 | NUR ---
PT APPEARS TO SLEEP, RESP EVEN AND REG.
--- NOTE | 2024-03-14 07:23 | NUR ---
REPORT RECEIVED FROM MARKET DEVELOPMENT TRAINER RN. PATIENT RESTING IN BED WITH EYES CLOSED. RESPIRATIONS EVEN AND UNLABORED. CALL LIGHT WITHIN REACH.
[2024-03-14 08:18] LABS: HEMATOCRIT 24.8 % (35.0-50.0); HEMOGLOBIN 8.2 g/dL (12.0-18.0)
[2024-03-14 08:21] LABS: BASOPHILS 0.4 % (0-2); EOSINOPHILS 1.6 % (0-6); LYMPHOCYTES 14.9 % (24-44); MCH 28.8 (27-36); MCHC 33.1 g/dl (30-36); MONOCYTES 9.1 % (0-12); PLATELET COUNT 170 K/uL (140-440); RBC 2.85 M/ul (4.3-5.7)
[2024-03-14 08:27] LABS: ANION GAP 8.5 (7-21); BUN/CREATININE RATIO 8.33 (6.0-28.6); CALCIUM 8.7 mg/dL (8.5-10.1); CREATININE, SERUM 1.08 mg/dL (0.70-1.30); MAGNESIUM 2.1 mg/dL (1.8-2.4); POTASSIUM 3.5 mmol/L (3.5-5.1)
--- NOTE | 2024-03-14 08:45 | NUR ---
PATIENT RESTING IN BED, TOLLERATING DIET THIS AM. PATIENT WOULD LIKE TO HAVE SOLID FOODS FOR LUNCH. URINAL EMPTIED. IV SITE PATENT. LUNGS CTA, DIM IN BASES. BOWEL TONES ACTIVE X 4 QUADRANTS. DENIES ANY PAIN OR DISCOMFORT AT THIS TIME. DENEIS ANY SOB. VSS. NO FURTHER NEEDS CALL LIGHT WITHIN REACH.
--- NOTE | 2024-03-14 10:45 | NUR ---
PATIENT ASSISTED TO BSC WITH 12 PA STAND BY ASSIST. PATIENT TRANFERED WELL, GOOD BALANCE, TOLLERATED POSTURE CHANGE WELL. FROM BSC PATIENT WENT TO RECLINER WITH NO ISSUES. DENEID DIZZYNESS OR SOB. NO FURTHER NEEDS. CALL LIGHT WITHIN REACH.
--- NOTE | 2024-03-14 11:14 | NUR ---
MD DE GUZMAN IN TO SEE PATIENT.
[2024-03-14] MEDS ORDERED: FUROSEMIDE 20 MG TAB PO SCH (11:15)
[2024-03-14] MEDS ORDERED: SILDENAFIL CITRATE 20 MG TAB PO SCH (15:00)
--- NOTE | 2024-03-14 15:02 | NUR ---
PATIENT AMBULATED TO BATHROOM. TOLLERATED WELL, DENIED ANY DIZZYNESS. AMBULATED BACK TO RECLINER. NO FURTHER NEEDS. CALL LIGHT WITHIN REACH.
--- NOTE | 2024-03-14 16:35 | NUR ---
REPORT RECEIVED AND CARE ASSUMED. PT SITTING UP IN THE CHAIR FRESH H20 TO BEDSIDE ENSURE PROVIDED PER REQUEST. PT DENIES OTHER NEEDS OF
[2024-03-14] MEDS ORDERED: POTASSIUM CHLORIDE 10 MEQ TABCR PO SCH (17:00)
--- NOTE | 2024-03-14 17:04 | NUR ---
PT UP IN THE CHAIR WITH EVEING MEAL DENIES OTHER NEEDS
--- NOTE | 2024-03-14 19:20 | NUR ---
REPORT RECEIVED FROM MORGAN MCBRIDE. pt UP IN CHAIR AFTER RESTROOM USE. CHANGEOVER OPERATOR IN ROOM. pt DENIES NEEDS. CALL LIGHT IN REACH.
--- NOTE | 2024-03-14 21:53 | NUR ---
pt AWAKE PLAYING SOLITAIRE ON PHONE. PO MEDICATIONS ADMINISTERED. ASSESSMENT COMPLETE. ENSURE PROVIDED. CALL LIGHT AND PERSONAL SUPPLIES IN REACH.
[2024-03-15] VITALS (9 sets, daily range): BP systolic 114–124; BP diastolic 43–61
--- NOTE | 2024-03-15 01:28 | NUR ---
pt AWAKE RESTING IN BED, WATCHING TV. VS COMPLETE, STABLE. pt DENIES PAIN. DENIES NEEDS. URINAL EMPTIED. CALL LIGHT IN REACH.
--- NOTE | 2024-03-15 02:48 | NUR ---
CHECKED ON pt. RESTING IN BED WITH EYES CLOSED. HR 61 ON TELE 1.
[2024-03-15 05:20] LABS: BASOPHILS 0.3 % (0-2); EOSINOPHILS 1.9 % (0-6); HEMATOCRIT 23.2 % (35.0-50.0); HEMOGLOBIN 7.7 g/dL (12.0-18.0); LYMPHOCYTES 12.5 % (24-44); MCH 28.7 (27-36); MCHC 33.3 g/dl (30-36); MCV 86.3 fl (81-99); MONOCYTES 12.4 % (0-12); NEUTROPHILS 72.9 % (39-80); PLATELET COUNT 158 K/uL (140-440); RBC 2.68 M/ul (4.3-5.7)
[2024-03-15 05:28] LABS: ANION GAP 6.4 (7-21); CALCIUM 8.6 mg/dL (8.5-10.1); CREATININE, SERUM 1.11 mg/dL (0.70-1.30); MAGNESIUM 1.9 mg/dL (1.8-2.4); POTASSIUM 3.4 mmol/L (3.5-5.1)
--- NOTE | 2024-03-15 05:50 | NUR ---
pt RESTING IN BED, DROWSY. VSS. URINAL EMPTIED. ASSESSMENT COMPLETE. pt HAS CALL LIGHT IN REACH. DENIES ANY NEEDS, REQUESTING TO REST.
--- NOTE | 2024-03-15 07:44 | NUR ---
Pt resting in bed at this time, eyes closed. TV on but patient sleeping, allowed to rest at this time. Call light is within reach at this time.
--- NOTE | 2024-03-15 08:30 | NUR ---
PT EATING BREAKFAST THIS MORNING, DENIES PAIN. DENIES BLOODY STOOL. REQUESTING TO AMBULATE IN THE HALLWAYS AND POSSIBLE SHOWER THIS MORNING. NAC WILL BE INFORMED TO HELP ASSIST WITH THIS. DID DISCUSS SLOW TRANSITIONS AND TO LET US KNOW IF HE BECOMES DIZZY, DENIES DIZZINESS WHILE LAYING IN BED BUT DID HAVE SOME WITH MOVEMENT LASTNIGHT. CALL LIGHT WITHIN REACH, ALLOWED TO FINISH BREAKFAST.
--- NOTE | 2024-03-15 11:00 | NUR ---
VISITED WITH PT WHILE AMBULATING IN [place]. PT IN OVERALL GOOD SPIRITS, EXPRESSED HOPE, TALKED OF POSITIVE LIFE CHANGES. CMA PROVIDED SUPPORTIVE PRESENCE, HOSPTIALITY, PRAYER. PT EXPRESSED GRATITUDE, CONFIDENCE IN RECOVERY.
--- NOTE | 2024-03-15 11:02 | NUR ---
PT AMBULATED WITH SBA/FWW AROUND THE NURSES STATION ENTIRELY, TOLERATED WELL, SATS 94% ON RA, DENIED ANY DIZZINESS BUT DID GET EXERTED AND NEEDED A COUPLE BREAKS BUT STATED OVERALL HE WAS FEELING GOOD. DID HAVE NAC BEHIND WITH W/C INCASE PT GOT DIZZY FOR SAFETY. PT NOW IN THE SHOWER, METALLOGRAPHER HELPING GETTING SHOWERED FOR THE DAY.
--- NOTE | 2024-03-15 13:00 | NUR ---
Spoke with Jamie. He denies needs. He is getting dressed and plans on dc to home. IM letter completed, he does not want to stay 4 hours to consider dc.
[2024-03-15] MEDS ORDERED: IRON325 M1 PO (13:43)
--- NOTE | 2024-03-17 12:43 | PATH ---
[facility] [address] [facility] [place], [place] [address] Signed SPECIMEN(S): A RECTUM BIOPSY SPECIMEN SOURCE: A. RECTUM BIOPSY CLINICAL HISTORY: GI bleed/diverticulosis FINAL PATHOLOGIC DIAGNOSIS: Rectum biopsy: - Rectal colonic mucosa with edema congestion and reactive epithelial hyperplastic changes. - Negative for significant inflammation or dysplasia. NA MICROSCOPIC EXAMINATION: Histologic sections of all submitted blocks are examined by light microscopy. These findings, together with the gross examination, support the pathologic diagnosis. GROSS DESCRIPTION: The specimen, labeled and designated "Dima rectum biopsy," is received in formalin and consists of two shearer soft tissue fragments, ranging from 0.2-0.3 cm. Entirely submitted in (A1). VB (under the direct supervision of a pathologist) The Gross Description was prepared using a voice recognition system. The report was reviewed for accuracy; however, sound-alike word errors, addition and/or deletions may occur. If there is any question about this report, please contact Client Services. ADDITIONAL NOTES: Immunohistochemical and/or in situ hybridization studies if performed in this case included appropriate positive controls that reacted as expected. This test was developed and its performance characteristics determined by [facility]. It has not been cleared or approved by the U.S. Food and Drug Administration. The FDA has determined that such clearance or approval is not necessary. This test is used for clinical purposes. It should not be regarded as investigational or for research. [facility] is certified under the Clinical Laboratory Improvement Amendments of 1988 (CLIA) as qualified to perform high complexity clinical PATIENT NAME: AYAD ANDERSON PATHOLOGY DATE OF : 55 REPORT #: [id number] PHYSICIAN: MIRI OWUSU PCP: ROSA MCLEAN MD REPORT IS CONFIDENTIAL AND NOT TO BE RELEASED WITHOUT AUTHORIZATION [address], [place] [address] Signed laboratory testing. PERFORMING LABORATORY: Technical component was performed by [facility], [address] [place] [address] (CLIA# [id number]). Professional interpretation was performed by [facility] - [facility]– [place], [address] [place] [address] (CLIA#: [id number]). Diagnostician: Linda Reina MD Pathologist Electronically Signed 03/17/2024 Copies: ~ PATIENT NAME: AYAD ANDERSON PATHOLOGY DATE OF : 55 REPORT #: [id number] PHYSICIAN: MIRI OWUSU PCP: ROSA MCLEAN MD REPORT IS CONFIDENTIAL AND NOT TO BE RELEASED WITHOUT AUTHORIZATION
== END 2024-03-15 15:30 | disposition home or self-care (01) | DRG 378 ==
LOC: ED 22:08 → MS 22:10
PROVIDERS: Emergency Medicine; Family Medicine; Surgery; ADMIT Student in an Organized Health Care Education/Training Program; ATTEND Student in an Organized Health Care Education/Training Program
PROC: 0DBP8ZX Excision of Rectum, Via Natural or Artificial Opening Endoscopic, Diagnostic (ICD-10-PCS; principal; 2024-03-13 12:54)
DX: K57.31 Diverticulosis of large intestine without perforation or abscess with bleeding (principal); N17.9 Acute kidney failure, unspecified; Z95.2 Presence of prosthetic heart valve; I11.0 Hypertensive heart disease with heart failure; I50.9 Heart failure, unspecified; I48.91 Unspecified atrial fibrillation; Z79.01 Long term (current) use of anticoagulants; Z79.82 Long term (current) use of aspirin; Z79.899 Other long term (current) drug therapy; E87.6 Hypokalemia; I27.20 Pulmonary hypertension, unspecified; E66.9 Obesity, unspecified; M10.9 Gout, unspecified; Z88.8 Allergy status to other drugs, medicaments and biological substances; E78.5 Hyperlipidemia, unspecified
CPT/HCPCS: 00811; 36415; 80048; 80053; 83735; 85025; 85610; 86850; 86900; 86901; 88305; 93005; 93010; 96365; 96367; 96374; 96376; 99285-25; A9270; G0378; J0290; J1580; J2003; J2704; J3430; J3475; J3480; J3490; J7060; J7121

== ENCOUNTER 2024-05-25 22:26 | Emergency (ER) | payer MEDICARE, OTHER ==
[~2024-05-25] VITALS: Ht 180.3 cm; Wt 127.9 kg
[~2024-05-25 22:26] MED LIST changes: +FUROSEMIDE40 MG PO; +IRON325 M1 PO; +POTASSIUM CHLO20 ME1 PO
[2024-05-25 23:09] LABS: INR 1.76 (0.80-1.30); PROTIME 20.5 Sec (11.2-14.2)
[2024-05-26] MEDS ORDERED: TRANEXAMIC ACID IN NACL,ISO-OS 1,000 MG/100 ML PIGGYBACK IV ONE (01:00)
[2024-05-26] MEDS ORDERED: OXYMETAZOLINE HCL 30 ML BTL NAS ONE (03:00)
[2024-05-26] MEDS ORDERED: PHYTONADIONE 10 MG/ML AMP SUB-Q ONE (03:00)
[2024-05-26] MEDS ORDERED: TRANEXAMIC ACID 1,000 MG/10 ML AMP TOP ONE (03:00)
[2024-05-26 05:15] VITALS: BP 124/76
== END 2024-05-26 05:15 | disposition home or self-care (01) ==
LOC: ED 22:26
PROVIDERS: Family Medicine
DX: R04.0 Epistaxis (principal); T45.515A Adverse effect of anticoagulants, initial encounter; I11.0 Hypertensive heart disease with heart failure; I50.9 Heart failure, unspecified; I48.91 Unspecified atrial fibrillation; Z87.891 Personal history of nicotine dependence; Z79.899 Other long term (current) drug therapy; Z79.01 Long term (current) use of anticoagulants; Z79.82 Long term (current) use of aspirin; Z88.8 Allergy status to other drugs, medicaments and biological substances
CPT/HCPCS: 30903; 36415; 85610; 99283-25; J3430